=== PATIENT | female | born 1945 | race Caucasian/White ===

== ENCOUNTER → 2019-09-16 10:23 | Outpatient (CLI) | payer MEDICARE, SELFPAY ==
--- NOTE | ~2019-09-16 | XR_ITS ---
XR hip RT min 2V DATE: 09/16/2019 10:40 INDICATION: Multiple falls. Right hip pain since July. TECHNIQUE: AP and lateral views of right hip COMPARISON: None FINDINGS: There is distention scoliosis and prominent degenerative disease of the lumbar spine. The s acroiliac joints and pubic symphysis appear intact. No fracture, dislocation, avascular necrosis or b one destruction of the right hip is detected. Right hip joint space appears relatively preserved. IMPRESSION: Dextro scoliosis and multilevel degenerative disc disease of the lumbar spine No fracture or dislocation of the right hip Reviewed, dictated and finalized at location B. OON PILOT IMPRESSION: Dextro scoliosis and multilevel degenerative disc disease of the kristal mbar spine No fracture or dislocation of the right hip
== END ==
PROVIDERS: PCP Nurse Practitioner Family; Visit Provider Family Medicine
DX: M25.551 Pain in right hip (principal); M51.36 Other intervertebral disc degeneration, lumbar region
CPT/HCPCS: 73502

== ENCOUNTER 2019-12-03 10:47 | Outpatient (CLI) | payer MEDICARE, SELFPAY ==
[2019-12-03 11:42] LABS: Magnesium 2.1 mg/dL (1.6-2.3)
== END 2019-12-03 10:48 | disposition home or self-care (01) ==
PROVIDERS: PCP Nurse Practitioner Family; Visit Provider Family Medicine
DX: E03.9 Hypothyroidism, unspecified (principal); E83.41 Hypermagnesemia
CPT/HCPCS: 36415; 83735; 84443

== ENCOUNTER 2019-12-22 08:03 | Outpatient (CLI) | payer MEDICARE, SELFPAY ==
[2019-12-22 08:40] LABS: Add Urine Microscopic? NO; Appearance Urine Clear (Clear); Bilirubin Urine Negative (Negative); Blood Urine Negative (Negative); Color Urine Yellow (Yellow); Glucose Urine UA Negative (Negative); Ketones Urine Negative (Negative); Leukocyte Esterase Ur Negative LEU/UL (NEGATIVE); Nitrate Urine Negative (Negative); Protein Urine Negative (Negative); Specific Grav Ur 1.014 (1.001-1.035); Urobilinogen Urine Negative mg/dL (<2.0)
[2019-12-22 08:52] LABS: Alanine Aminotransferase 21 U/L (4-35); Albumin Level 3.7 g/dL (3.5-5.1); Alkaline Phosphatase 68 U/L (38-126); Aspartate Amino Transferase 25 U/L (14-36); Bilirubin,Total 0.4 mg/dL (0.2-1.3); Blood Urea Nitrogen 23 mg/dL (7-17); Calcium 9.9 mg/dL (8.4-10.2); Carbon Dioxide 28 mmol/L (22-30); Chloride 108 mmol/L (98-107); Cholesterol 165 mg/dL (0-200); Estimated Glomerular Filt Rate 48; Glucose 83 mg/dL (65-105); HDL Direct 45 mg/dL; Magnesium 2.3 mg/dL (1.6-2.3); Potassium 4.1 mmol/L (3.4-5.0); Sodium 140 mmol/L (137-145); Triglycerides 75 mg/dL (<150)
[2019-12-22 09:03] LABS: LDL Cholesterol Direct 98 mg/dL
[2019-12-22 10:07] LABS: Folic Acid 9.6 ng/mL (2.76->20); Vitamin B12 > 1000.0 pg/mL (239-931)
== END 2019-12-22 08:04 | disposition home or self-care (01) ==
PROVIDERS: PCP Nurse Practitioner Family; Visit Provider Family Medicine
DX: N30.00 Acute cystitis without hematuria (principal); E03.9 Hypothyroidism, unspecified; I10 Essential (primary) hypertension; E78.00 Pure hypercholesterolemia, unspecified; Z79.899 Other long term (current) drug therapy
CPT/HCPCS: 36415; 80053; 80061; 81003; 82607; 82746; 83735; 84443

== ENCOUNTER 2019-12-22 16:16 | Outpatient (CLI) | payer MEDICARE, SELFPAY ==
--- NOTE | ~2019-12-22 | US_ITS ---
EXAMINATION: US carotid duplex BI EXAM DATE: 12/22/2019 17:15 INDICATION: Headache. TECHNIQUE: Grayscale, color and pulsed Doppler images of the cervical carotid arteries were obtained . The degree of vessel stenosis is placed in one of the following categories: normal, <50% stenosis, 50-69% stenosis, >=70% stenosis but less than near-occlusion, near-occlusion, or occlusion. Note that percent stenosis relative to normal distal artery lumen diameter is indirectly measured from velocit y measurements as described by Leeroy, et al. Radiology 2003; [id number]:[id number]. Comparison is made to prior examination from 12/04/2017. FINDINGS: RIGHT SIDE: Right common carotid artery peak systolic velocity (PSV in cm/s): 102 Right bulb/internal carotid artery peak systolic velocity (PSV in cm/s): 84 Right internal carotid artery end diastolic velocity (EDV in cm/s): 33 Right ICA/CCA peak systolic ratio: 0.8 Right external carotid artery peak systolic velocity (PSV in cm/s): 85 Right vertebral artery antegrade flow: yes There is mild carotid bulb plaque. Velocity and Doppler waveforms in the common and internal carotid arteries is normal. LEFT SIDE: Left common carotid artery peak systolic velocity (PSV in cm/s): 92 Left bulb/internal carotid artery peak systolic velocity (PSV in cm/s): 77 Left internal carotid artery end diastolic velocity (EDV in cm/s): 21 Left ICA/CCA peak systolic ratio: 0.8 Left external carotid artery peak systolic velocity (PSV in cm/s): 53 Left vertebral artery antegrade flow: yes There is minimal carotid bulb plaque. Velocity and Doppler waveforms in the common and internal carotid arteries is normal. IMPRESSION: 1. Less than 50 percent stenosis in the right internal carotid artery. 2. Less than 50 percent stenosis in the left internal carotid artery. > Reviewed, dictated and finalized at location A.
== END 2019-12-22 16:17 | disposition home or self-care (01) ==
LOC: ANHIMG 16:18
PROVIDERS: PCP Nurse Practitioner Family; Visit Provider Nurse Practitioner Family
DX: R51 Headache (principal); R42 Dizziness and giddiness; I65.23 Occlusion and stenosis of bilateral carotid arteries
CPT/HCPCS: 36415; 80053; 80061; 81003; 82607; 82746; 83735; 84443; 93880; 97110; 97140

== ENCOUNTER 2020-01-07 12:30 | Outpatient (RCR) | payer MEDICARE, SELFPAY ==
--- NOTE | 2019-12-08 10:31 | PTOPEVAL ---
Thank you for referring Sheri Louise to [facility]. Please review, sign, date and return this plan of care MAIK. Pt referred to therapy due to left shoulder pain. She reports pain for 6 years following a fall. She demonstrates decreased shoulder range, decreased strength and increased pain with daily task. She requires additional skilled therapy 2x/wk x 5 wk to achieve therapy goals. I agree with and certify that the following plan of care is medically necessary. Referring Physician Date Attending Provider: Marlo Gerardo MD Referring Provider: *PT Outpatient Evaluation Start: 12/08/19 09:30 Freq: Status: Active Protocol: Document 12/08/19 09:28 CAP (Rec: 12/08/19 10:11 CAP [id number]) Therapy Assessment Status Assessment Status Assessment Status Evaluation Outpatient Past Medical History Past Medical History Source of Past Medical History Patient,Recalled from Previous Visit, Confirmed with Patient /Family Neurological History Hx Neurological Disorders No Significant History Cardiovascular History Hx Atrial Fibrillation Yes: TAKES XARELTO Hx Deep Vein Thrombosis Yes Hx Hypercholesterolemia Yes Hx Hypertension Yes Hx Pacemaker Yes: 2009, REPLACED IN 2015. SEES Hx Other Cardiac Disorders Yes: SWELLING IN LEGS, RT LEG POOR CIRCULATION Respiratory History Hx Sleep Apnea Yes: DOES NOT WEAR C-PAP Gastrointestinal History Hx Appendectomy Yes Hx Cholecystectomy Yes Genitourinary History Hx Bladder Surgery Yes: SUSPENSION Hx Renal Disease Yes Musculoskeletal History Hx Arthritis Yes Hx Fibromyalgia Yes Hx Fractures Yes: RT HAND Hx Joint Replacement Yes: left TKR Hx Orthopedic Surgery Yes: RT ROTATOR CUFF, BILAT BUNIONS, RT HAND FX REPAIR Hematological History Hx Blood Transfusions Yes Endocrine History Hx Endocrine Surgery Yes: EXC.THYROID NODULE Hx Hypothyroidism Yes: TAKES MED HEENT History Hx Sinus Problems Yes: HX FESS Hx Dental Problems Yes: UPPER AND LOWER DENTURES Hx Other HEENT Disorders Yes: GLASSES, BILAT HEARING AIDS Integumentary History Hx Shingles Yes Reproductive History Hx Hysterectomy Yes Hx Other Reproductive Disorders Yes: LT BREAST LUMPECTOMY WITH LYMPH NODES. RT BREAST BENIGN BX Psychosocial History Hx Anxiety Yes: TAKES MED Hx Depression Yes: MED Pain History
--- NOTE | 2019-12-10 11:57 | PCPTNOTE ---
Patient called & cancelled scheduled appointment this date needing to reschedule.
--- NOTE | 2019-12-17 10:33 | PCPTNOTE ---
Patient did not show up for scheduled appointment this date.
--- NOTE | 2019-12-29 10:38 | PCPTNOTE ---
Patient did not show up for scheduled appointment this date.
--- NOTE | 2020-01-07 13:22 | PTOPEVAL ---
Thank you for referring Sheri Louise to [facility]. Please review, sign, date and return this plan of care MAIK. Pt has received 7 physical therapy visits to address chronic left shoulder pain. She demonstrates improved shoulder range and strength. She is performing her HEP. She has reached maximal potential of skilled therapy at this time. DC skilled PT services. I agree with and certify that the following plan of care is medically necessary. Referring Physician Date Attending Provider: Marlo Gerardo MD Physical Therapy Discharge Summary *PT Outpatient Evaluation Start: 12/08/19 09:30 Freq: Status: Active Protocol: Document 01/07/20 12:28 CAP (Rec: 01/07/20 12:54 CAP [id number]) Therapy Assessment Status Assessment Status Assessment Status Discharge Evaluation Information Problem Diagnosis left shoulder pain Onset 6 year Cause fall Additional Evaluation Detail steriod injection left shoulder 12/02/19. She had surgery on the right shoulder for rotator cuff repair 03/2011 . Subjective Information She denies any problems with Query Text:As Reported By Patient/ reaching activties. Will Family occasional have difficulty with carrying objects. Denies problems with sleeping, but she usually sleeps on right shoulder or back if possible. States she has numbness of her left hand at night. She will move the arm to improve the symptoms. Pain Assessment Timing of Pain Assessment Timing of Pain Assessment Re-assessment Pain Scale Pain Scale Used Numeric (1 - 10) Self Report Pain Assessment Left Shoulder(s) Reported Pain Level 0 Pain Score Pain Score 0: Self Report Upper Extremity Range of Motion Scapular/ Shoulder Range of Motion Right Shoulder Flexion - Active 156 Shoulder Extension - Active 50 Shoulder Abduction - Active 136 Shoulder Medial Rotation - Active 75 Shoulder Medial Rotation - Active T9 Query Text:Reach Behind the Back Shoulder Lateral Rotation - Active 90 Shoulder Lateral Rotation - Active T1 Query Text:Reach Behind the Head Left Shoulder Flexion - Active 148 Shoulder Extension - Active 48 Shoulder Abduction - Active 142 Shoulder Medial Rotation - Active 75 Shoulder Medial Rotation - Active T7 Query Text:Reach Behind the Back Shoulder Lateral Rotation - Active 80 Shoulder Lateral Rotation - Active T1 Query Te
== END 2020-01-08 09:24 | disposition home or self-care (01) ==
LOC: ANHPT 12:30
PROVIDERS: PCP Nurse Practitioner Family; Visit Provider Orthopaedic Surgery
DX: M25.512 Pain in left shoulder (principal); M75.82 Other shoulder lesions, left shoulder
CPT/HCPCS: 97110; 97140; 97162

== ENCOUNTER 2020-02-02 12:01 | Outpatient (CLI) | payer MEDICARE, SELFPAY ==
[2020-02-02 12:26] LABS: Basophils Percent Auto 0.5 % (0.2-1.2); Eosinophils Absolute Auto 0.2 K/mm3 (0-0.3); Eosinophils Percent Auto 2.4 % (0-4.4); Hematocrit 41.4 % (37.0-47.0); Hemoglobin 13.4 g/dL (12.0-15.0); Immature Granulocyte Absolute 0.02 K/mm3 (0.00-0.031); Immature Granulocyte Percent A 0.3 % (0-0.5); Lymphocytes Absolute Auto 2.29 K/mm3 (0.9-3.2); Lymphocytes Percent Auto 29.1 % (18.3-44.2); Mean Corpuscular HGB Conc 32.4 g/dl (32-36); Mean Corpuscular Hemoglobin 29.8 pg (26-34); Mean Platelet Volume 9.5 fl (7.4-10.4); Monocytes Absolute Auto 0.7 K/mm3 (0.1-0.6); Monocytes Percent Auto 8.7 % (2.6-8.5); Neutrophils Absolute Auto 4.6 K/mm3 (1.3-6.7); Platelet Count Result 222 k/mm3 (150-375); Red Cell Distribution Width 15.2 % (11.5-14.5); White Blood Count 7.9 K/mm3 (4.5-10.0)
[2020-02-02 12:36] LABS: INR 3.5; Prothrombin Time 34.4 Seconds (11.1-14.7)
[2020-02-02 13:18] LABS: Erythrocyte Sedimentation Rate 23 mm/hr (0-20)
== END 2020-02-02 12:02 | disposition home or self-care (01) ==
PROVIDERS: PCP Nurse Practitioner Family; Visit Provider Family Medicine
DX: G44.221 Chronic tension-type headache, intractable (principal); Z86.718 Personal history of other venous thrombosis and embolism; Z79.01 Long term (current) use of anticoagulants
CPT/HCPCS: 36415; 85025; 85610; 85652

== ENCOUNTER 2020-02-23 09:05 | Outpatient (CLI) | payer MEDICARE, SELFPAY ==
[2020-02-23 09:46] LABS: Prothrombin Time 13.1 Seconds (11.1-14.7)
== END 2020-02-23 09:06 | disposition home or self-care (01) ==
PROVIDERS: PCP Nurse Practitioner Family; Visit Provider Internal Medicine Cardiovascular Disease
DX: I48.0 Paroxysmal atrial fibrillation (principal)
CPT/HCPCS: 36415; 85610

== ENCOUNTER 2020-03-02 09:03 | Outpatient (CLI) | payer MEDICARE, SELFPAY ==
[2020-03-02 09:42] LABS: Alanine Aminotransferase 17 U/L (4-35); Albumin Level 3.8 g/dL (3.5-5.1); Alkaline Phosphatase 62 U/L (38-126); Aspartate Amino Transferase 22 U/L (14-36); Bilirubin,Total 0.5 mg/dL (0.2-1.3); Blood Urea Nitrogen 30 mg/dL (7-17); Carbon Dioxide 29 mmol/L (22-30); Chloride 105 mmol/L (98-107); Cholesterol 168 mg/dL (0-200); Estimated Glomerular Filt Rate 54; Glucose 82 mg/dL (65-105); HDL Direct 43 mg/dL; Potassium 4.5 mmol/L (3.4-5.0); Sodium 139 mmol/L (137-145); Triglycerides 103 mg/dL (<150)
[2020-03-02 09:53] LABS: LDL Cholesterol Direct 101 mg/dL
== END 2020-03-02 09:04 | disposition home or self-care (01) ==
LOC: ANHLAB 09:08
PROVIDERS: PCP Nurse Practitioner Family; Visit Provider Family Medicine
DX: Z13.6 Encounter for screening for cardiovascular disorders (principal); I10 Essential (primary) hypertension
CPT/HCPCS: 36415; 80053; 80061

== ENCOUNTER 2020-04-22 14:33 | Outpatient (CLI) | payer MEDICARE, SELFPAY ==
[2020-04-22 15:02] LABS: Basophils Absolute Auto 0.1 K/mm3 (0.0-0.1); Basophils Percent Auto 0.8 % (0.2-1.2); Eosinophils Absolute Auto 0.2 K/mm3 (0-0.3); Eosinophils Percent Auto 2.1 % (0-4.4); Hematocrit 40.9 % (37.0-47.0); Hemoglobin 13.2 g/dL (12.0-15.0); Immature Granulocyte Absolute 0.07 K/mm3 (0.00-0.031); Immature Granulocyte Percent A 0.9 % (0-0.5); Lymphocytes Absolute Auto 2.45 K/mm3 (0.9-3.2); Lymphocytes Percent Auto 32.9 % (18.3-44.2); Mean Corpuscular HGB Conc 32.3 g/dl (32-36); Mean Corpuscular Hemoglobin 30.6 pg (26-34); Mean Corpuscular Volume 94.9 fl (80-100); Mean Platelet Volume 9.7 fl (7.4-10.4); Monocytes Absolute Auto 0.6 K/mm3 (0.1-0.6); Monocytes Percent Auto 7.7 % (2.6-8.5); Neutrophils Absolute Auto 4.1 K/mm3 (1.3-6.7); Neutrophils Percent Auto 55.6 % (45.5-73.1); Platelet Count Result 230 k/mm3 (150-375); Red Blood Count 4.31 M/mm3 (4.2-5.4); Red Cell Distribution Width 13.5 % (11.5-14.5); White Blood Count 7.5 K/mm3 (4.5-10.0)
[2020-04-22 15:03] LABS: Add Urine Microscopic? YES; Appearance Urine Clear (Clear); Bilirubin Urine Negative (Negative); Blood Urine Negative (Negative); Color Urine Yellow (Yellow); Glucose Urine UA Negative (Negative); Ketones Urine Negative (Negative); Leukocyte Esterase Ur Trace LEU/UL (NEGATIVE); Mucus Urine Rare /lpf; Nitrate Urine Negative (Negative); Protein Urine Negative (Negative); Specific Grav Ur 1.017 (1.001-1.035); Squamous Epithelial Cell Urine Occasional /hpf (Few); Urobilinogen Urine Negative mg/dL (<2.0)
[2020-04-22 15:12] LABS: Alanine Aminotransferase 15 U/L (4-35); Albumin Level 3.7 g/dL (3.5-5.1); Alkaline Phosphatase 58 U/L (38-126); Anion Gap 5 mmol/L (8-16); Aspartate Amino Transferase 23 U/L (14-36); Bilirubin,Total 0.7 mg/dL (0.2-1.3); Blood Urea Nitrogen 23 mg/dL (7-17); Carbon Dioxide 27 mmol/L (22-30); Chloride 105 mmol/L (98-107); Estimated Glomerular Filt Rate 48; Glucose 99 mg/dL (65-105); Potassium 4.3 mmol/L (3.4-5.0); Sodium 137 mmol/L (137-145)
[2020-04-22 15:20] LABS: NT Pro B Type Natriuretic Pept 544 PG/ML (5-100)
[2020-04-22 15:50] LABS: Erythrocyte Sedimentation Rate 20 mm/hr (0-20)
== END 2020-04-22 14:34 | disposition home or self-care (01) ==
PROVIDERS: PCP Nurse Practitioner Family; Visit Provider Family Medicine
DX: G44.52 New daily persistent headache (NDPH) (principal); R06.02 Shortness of breath
CPT/HCPCS: 36415; 80053; 81001; 83735; 83880; 85025; 85652

== ENCOUNTER 2020-04-27 11:24 | Outpatient (CLI) | payer MEDICARE, SELFPAY ==
--- NOTE | ~2020-04-27 | XR_ITS ---
EXAMINATION: XR chest 2V 04/27/2020 11:46 INDICATION: Chronic heart failure PROCEDURE: 2 view chest COMPARISON: Comparison to multiple prior studies sequentially, with oldest reviewed study dated 01/2018. FINDINGS: The lungs are clear. There are healed right rib fractures. Pacemaker leads in expected posi tion. There are cholecystectomy clips. The cardiomediastinal silhouette is within normal limits. The re are no pleural effusions. There is no pneumothorax suspected. IMPRESSION: 1: NO ACUTE CARDIOPULMONARY DISEASE. Reviewed, dictated and finalized at location B.
== END 2020-04-27 11:25 | disposition home or self-care (01) ==
PROVIDERS: PCP Nurse Practitioner Family; Visit Provider Nurse Practitioner Adult Health
DX: I50.9 Heart failure, unspecified (principal)
CPT/HCPCS: 71046

== ENCOUNTER 2020-04-28 10:26 | Outpatient (CLI) | payer MEDICARE, SELFPAY ==
[2020-04-28 11:14] LABS: NT Pro B Type Natriuretic Pept 186 PG/ML (5-100)
== END 2020-04-28 10:27 | disposition home or self-care (01) ==
PROVIDERS: PCP Nurse Practitioner Family; Visit Provider Nurse Practitioner Adult Health
DX: R60.0 Localized edema (principal); I50.32 Chronic diastolic (congestive) heart failure; Z87.448 Personal history of other diseases of urinary system
CPT/HCPCS: 36415; 83880

== ENCOUNTER 2020-06-01 09:50 | Outpatient (CLI) | payer MEDICARE, SELFPAY ==
[2020-06-01 10:24] LABS: Basophils Percent Auto 0.2 % (0.2-1.2); Eosinophils Percent Auto 0.3 % (0-4.4); Hematocrit 38.1 % (37.0-47.0); Hemoglobin 12.7 g/dL (12.0-15.0); Immature Granulocyte Absolute 0.07 K/mm3 (0.00-0.031); Immature Granulocyte Percent A 0.6 % (0-0.5); Lymphocytes Absolute Auto 1.24 K/mm3 (0.9-3.2); Lymphocytes Percent Auto 10.1 % (18.3-44.2); Mean Corpuscular HGB Conc 33.3 g/dl (32-36); Mean Corpuscular Hemoglobin 30.5 pg (26-34); Mean Corpuscular Volume 91.6 fl (80-100); Mean Platelet Volume 9.9 fl (7.4-10.4); Monocytes Absolute Auto 1.1 K/mm3 (0.1-0.6); Monocytes Percent Auto 9.3 % (2.6-8.5); Neutrophils Absolute Auto 9.8 K/mm3 (1.3-6.7); Neutrophils Percent Auto 79.5 % (45.5-73.1); Platelet Count Result 169 k/mm3 (150-375); Red Blood Count 4.16 M/mm3 (4.2-5.4); Red Cell Distribution Width 13.2 % (11.5-14.5); White Blood Count 12.3 K/mm3 (4.5-10.0)
[2020-06-01 10:36] LABS: Alanine Aminotransferase 41 U/L (4-35); Albumin Level 3.5 g/dL (3.5-5.1); Alkaline Phosphatase 83 U/L (38-126); Anion Gap 9 mmol/L (8-16); Aspartate Amino Transferase 40 U/L (14-36); Bilirubin,Total 0.5 mg/dL (0.2-1.3); Blood Urea Nitrogen 33 mg/dL (7-17); Carbon Dioxide 27 mmol/L (22-30); Chloride 98 mmol/L (98-107); Estimated Glomerular Filt Rate 31; Glucose 129 mg/dL (65-105); Potassium 3.6 mmol/L (3.4-5.0); Sodium 134 mmol/L (137-145)
== END 2020-06-01 09:51 | disposition home or self-care (01) ==
PROVIDERS: PCP Nurse Practitioner Family; Visit Provider Family Medicine
DX: N30.01 Acute cystitis with hematuria (principal); R53.83 Other fatigue
CPT/HCPCS: 36415; 80053; 85025

== ENCOUNTER 2020-06-21 16:12 | Outpatient (CLI) | payer MEDICARE, SELFPAY ==
--- NOTE | ~2020-06-21 | XR_ITS ---
XR lumbar spine 2-3V DATE: 06/21/2020 16:41 INDICATION: Acute low back pain, right hip pain. Fall 2 weeks ago. TECHNIQUE: AP and lateral and coned lateral lumbosacral views COMPARISON: 01/05/2017 CT lumbar spine 12/04/2016 lumbar spine FINDINGS: There is rotatory dextroscoliosis of the lumbar spine with severe degenerative disc disease throughout the lumbar and lumbosacral area. There is prominent degenerative spurring of the lower th oracic spine as well. No fracture or bone destruction or spondylolisthesis. The sacral iliac joints are intact. Moderate osteopenia. Multiple surgical clips overlie the right upper quadrant, likely due to cholecystectomy. There is extensive calcification of the abdominal aorta without obvious aneurysm. IMPRESSION: Rotatory dextroscoliosis and severe degenerative disc disease of lumbar spine Reviewed, dictated and finalized at location A. NE STEWARD IMPRESSION: Rotatory dextroscoliosis and severe degenerative disc disease of kristal mbar spine
--- NOTE | ~2020-06-21 | XR_ITS ---
EXAMINATION: XR hip RT min 2V DATE: 06/21/2020 16:41 INDICATION: Right hip pain. TECHNIQUE: 3 views of right hip were obtained. COMPARISON: Right hip radiographs 09/16/19 FINDINGS: Bone alignment is normal. No fracture. There is mild right hip osteoarthritis. There is sev ere lumbar spondylosis. IMPRESSION: 1. Mild right hip osteoarthritis. Reviewed, dictated and finalized at location B. AL LATHE MACHINIST
== END 2020-06-21 16:13 | disposition home or self-care (01) ==
LOC: ANHIMG 16:18
PROVIDERS: PCP Nurse Practitioner Family; Visit Provider Family Medicine
DX: M47.817 Spondylosis without myelopathy or radiculopathy, lumbosacral region (principal); I70.0 Atherosclerosis of aorta; M16.11 Unilateral primary osteoarthritis, right hip; M47.815 Spondylosis without myelopathy or radiculopathy, thoracolumbar region; M41.9 Scoliosis, unspecified
CPT/HCPCS: 72100; 73502

== ENCOUNTER 2020-07-01 10:30 | Outpatient (RCR) | payer SELFPAY ==
[2020-06-18 09:24] VITALS: PULSE 63
--- NOTE | 2020-06-24 09:16 | PCCPR ---
Absent Sheri called off due to up most of night throwing up.
--- NOTE | 2020-06-30 13:56 | PCCPR ---
Absent today, not feeling well.
--- NOTE | 2020-07-07 16:46 | PCCPR ---
Absent-for at least 2 weeks. Patient is Covid positive.
--- NOTE | 2020-07-22 08:44 | PCCPR ---
pt states feeling better, negative for pneumonia; pt still fatigued and slight cough. Pt plans to wait until after Serafin to return to CR. Did NOT discuss change in CR scheduling
--- NOTE | 2020-08-18 15:06 | PCCPR ---
Addendum entered by Juliane Mistry RN 09/13/20 08:07: LM for Sheri to give us a call to update her status or possible return to CR. Original Note: LM to follow up on plans to return to CR.
--- NOTE | 2020-09-22 12:20 | PCCPR ---
Discharging-Spoke with patient who states she has not been well since having COVID in June. She states she is sick again and they are worried it may be COVID again. She states she has spoken to her doctor and they agree she is ok to discharge and continue to do her exercises at home as tolerated. She also states she hopes to have shoulder surgery in the next month or so. Will discharge patient from the program per her request.
== END 2020-07-01 23:59 | disposition home or self-care (01) ==
LOC: ANHCPREHAB 10:30
PROVIDERS: PCP Nurse Practitioner Family; Visit Provider Nurse Practitioner Adult Health
DX: I50.32 Chronic diastolic (congestive) heart failure (principal)
CPT/HCPCS: 99199

== ENCOUNTER 2020-07-03 11:28 | Emergency (ER) | payer MEDICARE, SELFPAY ==
--- NOTE | ~2020-07-03 | XR_ITS ---
EXAMINATION: XR chest 2V EXAM DATE: 07/03/2020 12:01 INDICATION: weakness and sob/ X one week . TECHNIQUE: Frontal and lateral projections of the chest obtained and reviewed. Comparison is made to prior examination from 04/27/2020. FINDINGS: There is a dual lead pacemaker/AICD seen with leads projecting over the expected locations of the right atrial appendage and right ventricle. No confluent consolidation, pneumothorax or pleur al effusion suspected. Cardiomediastinal silhouette is normal. There are cholecystectomy clips. Old r ight mid rib fractures. Left axillary surgical clips. IMPRESSION: No acute cardiopulmonary findings. Reviewed, dictated and finalized at location A. FIBER TAKER OFF
--- NOTE | 2020-07-03 11:31 | ED.GENADULT ---
HPI - General Adult General Chief complaint: Unspecified Stated complaint: nausea/tired Time Seen by Provider: 07/03/20 11:31 Source: patient Mode of arrival: ambulatory Limitations: no limitations History of Present Illness HPI narrative: 75-year-old female patient presents to the [facility] with complaints of feeling nauseated with increased weakness and feeling overall tired. Patient states about 2 months ago she was diagnosed with CHF and had issues with her kidneys. Patient states that she was feeling a little bit better however that about a week ago she increasingly got more weak, is feeling very tired all the time and states she has been having some nausea. Patient states in the morning but sometimes she does cough up some yellow stuff. Patient states she has had intermittent shortness of breath. Patient states she does have bronchitis at times. Patient denies any fevers. Denies any diarrhea. Denies any body aches or chills. Related Data Home Medications Medication Instructions Recorded Confirmed carvedilol 6.25 mg PO BID 07/25/19 06/18/20 dicyclomine 20 mg PO BID 07/25/19 06/18/20 escitalopram oxalate 10 mg tablet 20 mg PO DAILY 08/01/19 06/18/20 montelukast 10 mg tablet 10 mg PO DAILY 08/01/19 06/18/20 vitamin B complex 1 tablet PO DAILY 08/01/19 06/18/20 alprazolam [Xanax] 0.25 mg PO DAILY PRN 08/21/19 07/03/20 cholecalciferol (vitamin D3) 400 unit PO DAILY 08/21/19 06/18/20 [Vitamin D3] flaxseed oil 1,000 mg PO DAILY 08/21/19 06/18/20 rivaroxaban [Xarelto] 15 mg PO DAILY 04/12/20 06/18/20 furosemide 20 mg PO BID 06/18/20 06/18/20 vitamin E 400 unit PO DAILY 06/18/20 06/18/20 levothyroxine [Euthyrox] 25 mcg DAILY 07/03/20 07/03/20 Allergies Allergy/AdvReac Type Severity Reaction Status Date / Time ciprofloxacin Allergy Intermediate Muscle Pain Verified 12/02/19 07:34 levofloxacin Allergy Intermediate muscle pain Verified 12/02/19 07:34 metoprolol Allergy Intermediate Palpitation Verified 12/02/19 07:34 s codeine AdvReac Unknown Nausea and Verified 12/02/19 07:34 Vomiting Review of Systems Review of Systems: Narrative: CONSTITUTIONAL: Denies fever, chills, or sweats. EYES: Denies visual changes, redness, or discharge. ENT: Denies rhinorrhea, congestion, sore throat, or otalgia. CARDIOVASCULAR: Denies chest pain, palpitations, or edema. RESPIRATORY: Positive intermittent cough, positive intermittent dyspnea. GASTROINTESTINAL: Denies abdominal pain, nausea, vomiting, or diarrhea. GENITOURINARY: Denies dysuria or hematuria. SKIN: Denies rash or itching. MUSCULOSKELETAL: Denies back pain, joint pain, or myalgia. NEUROLOGIC: Denies headache, numbness, positive weakness. PSYCHIATRIC: Denies anxiety or depression. [facility] Past Medical History Medical History (Updated 07/03/20 @ 12:41 by GLADIS Melendez) Cancer LEFT breast cancer Cardiac arrhythmia Atrial Fibrillation CHF (congestive heart failure) Coronary artery disease Cough Essential hypertension, benign (07/31/17) GERD (gastroesophageal reflux disease) (07/31/17) History of blood clots Hypercholesterolemia Hypothyroidism Insomnia (07/31/17) Kidney disease Obesity Osteoporosis Sinusitis Surgical History Surgical History History of carpal tunnel release Right 09/08/2019 History of left knee replacement History of lumpectomy lt breast Hx of appendectomy Hx of cholecystectomy Hx of partial thyroidectomy Pacemaker Status post trigger finger release Family History Family History Sibling Hypertension Family history of diabetes mellitus in first degree relative Mother Family history of heart disease in male family member before age 55 Hypertension Family history of arthritis Father Diabetes mellitus Hypertension Malignant neoplasm of prostate Brother Hypertension Family history of type 2 diabetes mellitus F
[2020-07-03 11:52] VITALS: BP 107/62; PULSE 89; RESP 20; TEMP 37.3; O2SAT 100
--- NOTE | 2020-07-03 12:03 | ECG_ITS ---
Measurements Intervals [place] Rate: 68 P: 137 DE: 172 QRS: 1 QRSD: 94 T: 56 QT: 399 QTc: 425 Interpretive Statements ELECTRONIC ATRIAL PACEMAKER LOW QRS VOLTAGE IN PRECORDIAL LEADS BORDERLINE ECG Electronically Signed On 07-03-2020 17:00:04 [employer] by Ildefonso Ramos D.O.
--- NOTE | 2020-07-03 12:36 | PC.NURSE ---
Екатерина VILLASENOR called [place] [facility] with report Spoke with Dr Caballero
== END 2020-07-03 12:43 | disposition short-term general hospital (02) ==
PROVIDERS: Emergency Provider Nurse Practitioner Family; PCP Nurse Practitioner Family
DX: R53.1 Weakness (principal); Z85.3 Personal history of malignant neoplasm of breast; I11.0 Hypertensive heart disease with heart failure; I50.9 Heart failure, unspecified; I48.91 Unspecified atrial fibrillation; K21.9 Gastro-esophageal reflux disease without esophagitis; E78.00 Pure hypercholesterolemia, unspecified; E03.9 Hypothyroidism, unspecified; M81.0 Age-related osteoporosis without current pathological fracture; Z96.652 Presence of left artificial knee joint; Z95.0 Presence of cardiac pacemaker
CPT/HCPCS: 71046; 93005; 99213; G0463

== ENCOUNTER 2020-07-03 13:17 | Emergency (ER) | payer MEDICARE, SELFPAY ==
[2020-07-03 13:21] VITALS: BP 122/67; PULSE 79; RESP 17; TEMP 36.6; O2SAT 100
--- NOTE | 2020-07-03 13:28 | ECG_ITS ---
Measurements Intervals [place] Rate: 79 P: 158 NV: 176 QRS: -7 QRSD: 90 T: 33 QT: 362 QTc: 416 Interpretive Statements ELECTRONIC ATRIAL PACEMAKER DELAYED PRECORDIAL R/S TRANSITION LOW VOLTAGE IN PRECORDIAL LEADS BASELINE ARTIFACT- I, II, AVR BORDERLINE ECG Electronically Signed On 07-03-2020 17:03:19 ASSEMBLER FITTER by Ildefonso Ramos D.O.
[2020-07-03 13:44] VITALS: BP 138/83; PULSE 81; PULSE 82; RESP 19; O2SAT 97
[2020-07-03 13:49] LABS: Basophils Percent Auto 0.4 % (0.2-1.2); Eosinophils Absolute Auto 0.1 K/mm3 (0-0.3); Hematocrit 39.4 % (37.0-47.0); Immature Granulocyte Absolute 0.04 K/mm3 (0.00-0.031); Immature Granulocyte Percent A 0.8 % (0-0.5); Lymphocytes Percent Auto 39.2 % (18.3-44.2); Mean Corpuscular Hemoglobin 29.6 pg (26-34); Mean Corpuscular Volume 89.7 fl (80-100); Mean Platelet Volume 9.2 fl (7.4-10.4); Monocytes Absolute Auto 0.6 K/mm3 (0.1-0.6); Neutrophils Absolute Auto 2.4 K/mm3 (1.3-6.7); Neutrophils Percent Auto 46.6 % (45.5-73.1); Platelet Count Result 260 k/mm3 (150-375); Red Blood Count 4.39 M/mm3 (4.2-5.4); Red Cell Distribution Width 13.6 % (11.5-14.5); White Blood Count 5.1 K/mm3 (4.5-10.0)
[2020-07-03 14:00] LABS: INR 1.7; Prothrombin Time 20.9 Seconds (11.1-14.7)
[2020-07-03 14:01] LABS: Partial Thromboplastin Time 35.2 SECONDS (22.3-36.8)
[2020-07-03 14:02] LABS: Alanine Aminotransferase 17 U/L (4-35); Albumin Level 4.1 g/dL (3.5-5.1); Alkaline Phosphatase 71 U/L (38-126); Anion Gap 8 mmol/L (8-16); Aspartate Amino Transferase 26 U/L (14-36); Bilirubin,Total 0.5 mg/dL (0.2-1.3); Blood Urea Nitrogen 22 mg/dL (7-17); Calcium 10.3 mg/dL (8.4-10.2); Carbon Dioxide 31 mmol/L (22-30); Chloride 102 mmol/L (98-107); Estimated CRCL calculation 37 ml/min; Estimated Glomerular Filt Rate 48; Glucose 97 mg/dL (65-105); Potassium 3.8 mmol/L (3.4-5.0); Sodium 141 mmol/L (137-145)
[2020-07-03 14:11] LABS: NT Pro B Type Natriuretic Pept 343 PG/ML (5-100)
[2020-07-03 14:44] VITALS: BP 132/63; PULSE 85; RESP 14; TEMP 36.6; O2SAT 98
--- NOTE | 2020-07-03 14:55 | ED.GENADULT ---
HPI - General Adult General Chief complaint: Weakness Stated complaint: sent from urgent care/weakness Time Seen by Provider: 07/03/20 13:38 History of Present Illness HPI narrative: Patient is a 75-year-old female who presents ER with generalized weakness and fatigue. She was referred here from the urgent care. 3 weeks ago patient was diagnosed with CHF as well as acute kidney injury. She has been placed on medications to stabilize his issues. Furthermore she also had issues with dark black stool several months ago and has been on Xarelto. She missed a colonoscopy follow-up on this. She is not currently having loose stools. She is not having dizziness. No chest pain or chest pressure. She does report that she has been having new productive cough of yellow sputum. No fevers or chills or sweats. She does have some mild sinus congestion with postnasal drip. Related Data Home Medications Medication Instructions Recorded Confirmed carvedilol 6.25 mg PO BID 07/25/19 07/03/20 dicyclomine 20 mg PO BID 07/25/19 07/03/20 escitalopram oxalate 10 mg tablet 20 mg PO DAILY 08/01/19 07/03/20 montelukast 10 mg tablet 10 mg PO DAILY 08/01/19 07/03/20 vitamin B complex 1 tablet PO DAILY 08/01/19 07/03/20 alprazolam [Xanax] 0.25 mg PO DAILY PRN 08/21/19 07/03/20 cholecalciferol (vitamin D3) 400 unit PO DAILY 08/21/19 07/03/20 [Vitamin D3] flaxseed oil 1,000 mg PO DAILY 08/21/19 07/03/20 rivaroxaban [Xarelto] 15 mg PO DAILY 04/12/20 07/03/20 furosemide 40 mg PO BID 06/18/20 07/03/20 vitamin E 400 unit PO DAILY 06/18/20 07/03/20 levothyroxine [Euthyrox] 25 mcg DAILY 07/03/20 07/03/20 Allergies Allergy/AdvReac Type Severity Reaction Status Date / Time ciprofloxacin Allergy Intermediate Muscle Pain Verified 07/03/20 13:45 levofloxacin Allergy Intermediate muscle pain Verified 07/03/20 13:45 metoprolol Allergy Intermediate Palpitation Verified 07/03/20 13:45 s codeine AdvReac Unknown Nausea and Verified 07/03/20 13:45 Vomiting Review of Systems Review of Systems: All systems reviewed & are unremarkable except as noted in HPI and below Constitutional: Constitutional: Denies chills, Reports fatigue and Denies fever(s) ENT: Denies nasal congestion and Denies sore throat Cardiovascular: Cardiovascular: Denies chest pain and Denies radiating jaw, neck or arm pain Respiratory: Respiratory: Reports cough, Reports dyspnea and Denies wheezing Gastrointestinal: Gastrointestinal: Denies abdominal pain, Denies nausea and Denies vomiting [facility] Past Medical History Medical History (Updated 07/03/20 @ 15:31 by Derek Caballero MD) Cancer LEFT breast cancer Cardiac arrhythmia Atrial Fibrillation CHF (congestive heart failure) Coronary artery disease Cough Essential hypertension, benign (07/31/17) GERD (gastroesophageal reflux disease) (07/31/17) History of blood clots Hypercholesterolemia Hypothyroidism Insomnia (07/31/17) Kidney disease Obesity Osteoporosis Sinusitis Surgical History Surgical History History of carpal tunnel release Right 09/08/2019 History of left knee replacement History of lumpectomy lt breast Hx of appendectomy Hx of cholecystectomy Hx of partial thyroidectomy Pacemaker Status post trigger finger release Family History Family History Sibling Hypertension Family history of diabetes mellitus in first degree relative Mother Family history of heart disease in male family member before age 55 Hypertension Family history of arthritis Father Diabetes mellitus Hypertension Malignant neoplasm of prostate Brother Hypertension Family history of type 2 diabetes mellitus Father Family history of type 2 diabetes mellitus Hypertension Sister Family history of type 2 diabetes mellitus Mother Family history of coronary artery disease Other Family history of kidney disease
[2020-07-03 15:11] LABS: Add Urine Microscopic? YES; Appearance Urine Clear (Clear); Bilirubin Urine Negative (Negative); Blood Urine Negative (Negative); Color Urine Yellow (Yellow); Glucose Urine UA Negative (Negative); Ketones Urine Negative (Negative); Leukocyte Esterase Ur Negative LEU/UL (Negative); Mucus Urine Rare /lpf; Nitrate Urine Negative (Negative); Protein Urine 1+ mg/dL (Negative); RBC Urine 0-2 /hpf (0-2); Specific Grav Ur 1.023 (1.001-1.035); Squamous Epithelial Cell Urine Occasional /hpf (Few); Urobilinogen Urine Negative mg/dL (<2.0); WBC Urine 0-3 /hpf
[2020-07-03 15:33] VITALS: BP 136/95; PULSE 78; RESP 16; O2SAT 96
[2020-07-03 23:37] LABS: SARS-CoV-2 RNA PCR Positive
== END 2020-07-03 15:45 | disposition home or self-care (01) ==
PROVIDERS: Emergency Provider Emergency Medicine; PCP Nurse Practitioner Family
DX: U07.1 COVID-19 (principal); R53.1 Weakness; Z85.3 Personal history of malignant neoplasm of breast; I50.9 Heart failure, unspecified; I25.10 Atherosclerotic heart disease of native coronary artery without angina pectoris; I11.0 Hypertensive heart disease with heart failure; E78.00 Pure hypercholesterolemia, unspecified; K21.9 Gastro-esophageal reflux disease without esophagitis; M81.0 Age-related osteoporosis without current pathological fracture; E66.9 Obesity, unspecified; Z68.29 Body mass index [BMI] 29.0-29.9, adult; N28.9 Disorder of kidney and ureter, unspecified; Z96.652 Presence of left artificial knee joint; E89.0 Postprocedural hypothyroidism; Z95.0 Presence of cardiac pacemaker; Z79.01 Long term (current) use of anticoagulants
CPT/HCPCS: 36415; 71046; 80053; 81001; 83880; 85025; 85610; 85730; 87635; 93005; 99283; C9803; U0003

== ENCOUNTER 2020-07-21 10:46 | Outpatient (CLI) | payer MEDICARE, SELFPAY ==
--- NOTE | ~2020-07-21 | XR_ITS ---
EXAMINATION: XR chest 2V DATE: 07/21/2020 11:09 INDICATION: Cough. TECHNIQUE: Frontal and lateral views of the chest were obtained. COMPARISON: Chest 2 views 07/03/2020, CT abdomen 02/16/2018 FINDINGS: There is chronic mild elevation of right hemidiaphragm. No pneumonia, pleural effusion, or pneumothorax. The heart size is normal. There is a left chest wall pacer with leads in the right atri um and right ventricle. There are multiple old healed right rib fractures. There are surgical clips i n left axilla. Surgical clips in the right upper quadrant are likely from cholecystectomy. IMPRESSION: 1. No acute cardiopulmonary disease. Reviewed, dictated and finalized at location B. E RESEARCH
== END 2020-07-21 10:47 | disposition home or self-care (01) ==
LOC: ANHIMG 10:56
PROVIDERS: PCP Nurse Practitioner Family; Visit Provider Family Medicine
DX: R05 Cough (principal); J40 Bronchitis, not specified as acute or chronic
CPT/HCPCS: 71046

== ENCOUNTER 2020-09-07 09:24 | Outpatient (CLI) | payer MEDICARE, SELFPAY ==
[2020-09-07 09:58] LABS: Hematocrit 42.7 % (37.0-47.0); Hemoglobin 13.8 g/dL (12.0-15.0); Mean Corpuscular HGB Conc 32.3 g/dl (32-36); Mean Corpuscular Hemoglobin 30.1 pg (26-34); Mean Corpuscular Volume 93.2 fl (80-100); Mean Platelet Volume 9.6 fl (7.4-10.4); Platelet Count Result 246 k/mm3 (150-375); Red Blood Count 4.58 M/mm3 (4.2-5.4); Red Cell Distribution Width 13.8 % (11.5-14.5); White Blood Count 7.4 K/mm3 (4.5-10.0)
[2020-09-07 10:11] LABS: Alanine Aminotransferase 15 U/L (4-35); Albumin Level 3.7 g/dL (3.5-5.1); Alkaline Phosphatase 65 U/L (38-126); Anion Gap 3 mmol/L (8-16); Aspartate Amino Transferase 25 U/L (14-36); Bilirubin,Total 0.6 mg/dL (0.2-1.3); Blood Urea Nitrogen 21 mg/dL (7-17); Calcium 10.1 mg/dL (8.4-10.2); Carbon Dioxide 30 mmol/L (22-30); Chloride 105 mmol/L (98-107); Estimated Glomerular Filt Rate 48; Glucose 89 mg/dL (65-105); Potassium 4.1 mmol/L (3.4-5.0); Sodium 138 mmol/L (137-145)
== END 2020-09-07 09:25 | disposition home or self-care (01) ==
PROVIDERS: PCP Nurse Practitioner Family; Visit Provider Family Medicine
DX: E03.9 Hypothyroidism, unspecified (principal); I10 Essential (primary) hypertension
CPT/HCPCS: 36415; 80053; 84443; 85027

== ENCOUNTER 2020-10-07 10:55 | Outpatient (CLI) | payer MEDICARE, SELFPAY ==
--- NOTE | ~2020-10-07 | XR_ITS ---
XR chest 2V DATE: 10/07/2020 11:08 INDICATION: Shortness of breath. Chronic diastolic heart failure. TECHNIQUE: PA and lateral views COMPARISON: 07/21/2020 PA and lateral views FINDINGS: Left dual lead pacemaker. Normal heart size. There is aortic calcification and unfolding. Stable mild right diaphragmatic elevation. No pulmonary infiltrate or consolidation, pulmonary vascular congestion or pleural effusion or pneumo thorax. Status post left mastectomy and left axillary surgical clips due to axillary node dissection. Old healed right 6th through 8th rib fractures. Status post cholecystectomy. There is levoscoliosis and degenerative change of the thoracolumbar spine. IMPRESSION: No active cardiopulmonary disease or significant change since 07/21/2020 Reviewed, dictated and finalized at location A. ICAL INSTRUMENT MECHANIC IMPRESSION: No active cardiopulmonary disease or significant change since 2019
== END 2020-10-07 10:56 | disposition home or self-care (01) ==
LOC: ANHIMG 11:00
PROVIDERS: PCP Nurse Practitioner Family; Visit Provider Internal Medicine Cardiovascular Disease
DX: I50.32 Chronic diastolic (congestive) heart failure (principal); I48.0 Paroxysmal atrial fibrillation; R06.00 Dyspnea, unspecified
CPT/HCPCS: 71046

== ENCOUNTER 2020-10-21 11:21 | Outpatient (CLI) | payer MEDICARE, SELFPAY ==
[2020-10-21 12:07] LABS: Basophils Absolute Auto 0.1 K/mm3 (0.0-0.1); Basophils Percent Auto 0.7 % (0.2-1.2); Eosinophils Absolute Auto 0.2 K/mm3 (0-0.3); Eosinophils Percent Auto 3.3 % (0-4.4); Hematocrit 44.1 % (37.0-47.0); Hemoglobin 14.1 g/dL (12.0-15.0); Immature Granulocyte Absolute 0.02 K/mm3 (0.00-0.031); Immature Granulocyte Percent A 0.3 % (0-0.5); Lymphocytes Absolute Auto 2.62 K/mm3 (0.9-3.2); Lymphocytes Percent Auto 37.2 % (18.3-44.2); Mean Corpuscular Volume 90.6 fl (80-100); Mean Platelet Volume 9.7 fl (7.4-10.4); Monocytes Absolute Auto 0.6 K/mm3 (0.1-0.6); Monocytes Percent Auto 8.9 % (2.6-8.5); Neutrophils Absolute Auto 3.5 K/mm3 (1.3-6.7); Neutrophils Percent Auto 49.6 % (45.5-73.1); Platelet Count Result 250 k/mm3 (150-375); Red Blood Count 4.87 M/mm3 (4.2-5.4); Red Cell Distribution Width 13.3 % (11.5-14.5); White Blood Count 7.1 K/mm3 (4.5-10.0)
[2020-10-21 12:19] LABS: Alanine Aminotransferase 13 U/L (4-35); Albumin Level 3.9 g/dL (3.5-5.1); Alkaline Phosphatase 64 U/L (38-126); Anion Gap 4 mmol/L (8-16); Aspartate Amino Transferase 23 U/L (14-36); Bilirubin,Total 0.6 mg/dL (0.2-1.3); Blood Urea Nitrogen 21 mg/dL (7-17); Calcium 10.4 mg/dL (8.4-10.2); Carbon Dioxide 28 mmol/L (22-30); Chloride 106 mmol/L (98-107); Estimated Glomerular Filt Rate 54; Glucose 81 mg/dL (65-105); Potassium 4.2 mmol/L (3.4-5.0); Sodium 138 mmol/L (137-145)
[2020-10-21 13:16] LABS: Free T4 Free Thyroxine 0.85 ng/mL (0.78-2.19); Vitamin D 25 Hydroxy 51.8 ng/mL
== END 2020-10-21 11:22 | disposition home or self-care (01) ==
PROVIDERS: PCP Nurse Practitioner Family; Visit Provider Family Medicine
DX: E03.9 Hypothyroidism, unspecified (principal); R53.83 Other fatigue; R11.2 Nausea with vomiting, unspecified; I10 Essential (primary) hypertension; F41.1 Generalized anxiety disorder; Z79.899 Other long term (current) drug therapy
CPT/HCPCS: 36415; 80053; 82306; 82607; 84439; 84443; 85025

== ENCOUNTER 2020-12-17 08:56 | Outpatient (CLI) | payer MEDICARE, SELFPAY ==
[2020-12-17 09:31] LABS: Basophils Absolute Auto 0.1 K/mm3 (0.0-0.1); Basophils Percent Auto 0.7 % (0.2-1.2); Eosinophils Absolute Auto 0.2 K/mm3 (0-0.3); Eosinophils Percent Auto 2.6 % (0-4.4); Hematocrit 41.7 % (37.0-47.0); Hemoglobin 13.3 g/dL (12.0-15.0); Immature Granulocyte Absolute 0.01 K/mm3 (0.00-0.031); Immature Granulocyte Percent A 0.1 % (0-0.5); Lymphocytes Absolute Auto 2.77 K/mm3 (0.9-3.2); Lymphocytes Percent Auto 37.2 % (18.3-44.2); Mean Corpuscular HGB Conc 31.9 g/dl (32-36); Mean Corpuscular Hemoglobin 28.7 pg (26-34); Mean Corpuscular Volume 90.1 fl (80-100); Mean Platelet Volume 9.9 fl (7.4-10.4); Monocytes Absolute Auto 0.8 K/mm3 (0.1-0.6); Monocytes Percent Auto 10.1 % (2.6-8.5); Neutrophils Absolute Auto 3.7 K/mm3 (1.3-6.7); Neutrophils Percent Auto 49.3 % (45.5-73.1); Platelet Count Result 252 k/mm3 (150-375); Red Blood Count 4.63 M/mm3 (4.2-5.4); Red Cell Distribution Width 14.4 % (11.5-14.5); White Blood Count 7.5 K/mm3 (4.5-10.0)
[2020-12-17 09:43] LABS: Add Urine Microscopic? YES; Appearance Urine Clear (Clear); Bilirubin Urine Negative (Negative); Blood Urine Negative (Negative); Color Urine Yellow (Yellow); Glucose Urine UA Negative (Negative); Ketones Urine Negative (Negative); Leukocyte Esterase Ur Trace LEU/UL (Negative); Mucus Urine Rare /lpf; Nitrate Urine Negative (Negative); Protein Urine Negative (Negative); RBC Urine 0-2 /hpf (0-2); Specific Grav Ur 1.019 (1.001-1.035); Squamous Epithelial Cell Urine Rare /hpf (Few); Urobilinogen Urine Negative mg/dL (<2.0)
[2020-12-17 09:48] LABS: Alanine Aminotransferase 11 U/L (4-35); Albumin Level 3.9 g/dL (3.5-5.1); Alkaline Phosphatase 62 U/L (38-126); Anion Gap 4 mmol/L (8-16); Aspartate Amino Transferase 22 U/L (14-36); Bilirubin,Total 0.7 mg/dL (0.2-1.3); Blood Urea Nitrogen 31 mg/dL (7-17); Carbon Dioxide 34 mmol/L (22-30); Chloride 102 mmol/L (98-107); Estimated Glomerular Filt Rate 37; Glucose 97 mg/dL (65-105); Magnesium 2.3 mg/dL (1.6-2.3); Potassium 3.8 mmol/L (3.4-5.0); Sodium 140 mmol/L (137-145)
[2020-12-17 10:09] LABS: Erythrocyte Sedimentation Rate 21 mm/hr (0-20)
== END 2020-12-17 08:57 | disposition home or self-care (01) ==
PROVIDERS: PCP Nurse Practitioner Family; Visit Provider Family Medicine
DX: R10.9 Unspecified abdominal pain (principal)
CPT/HCPCS: 36415; 80053; 81001; 83735; 85025; 85652

== ENCOUNTER 2020-12-27 13:58 | Outpatient (CLI) | payer MEDICARE, SELFPAY ==
[2020-12-27 15:58] LABS: Alanine Aminotransferase 14 U/L (4-35); Alkaline Phosphatase 62 U/L (38-126); Anion Gap 5 mmol/L (8-16); Aspartate Amino Transferase 26 U/L (14-36); Bilirubin,Total 0.7 mg/dL (0.2-1.3); Blood Urea Nitrogen 20 mg/dL (7-17); Calcium 10.8 mg/dL (8.4-10.2); Carbon Dioxide 29 mmol/L (22-30); Chloride 107 mmol/L (98-107); Estimated Glomerular Filt Rate 44; Glucose 93 mg/dL (65-105); Sodium 141 mmol/L (137-145)
[2020-12-27 16:05] LABS: NT Pro B Type Natriuretic Pept 711 pg/mL (5-100)
== END 2020-12-27 13:59 | disposition home or self-care (01) ==
PROVIDERS: PCP Nurse Practitioner Family; Visit Provider Family Medicine
DX: N18.30 Chronic kidney disease, stage 3 unspecified (principal); R05 Cough; R06.00 Dyspnea, unspecified
CPT/HCPCS: 36415; 80053; 83880

== ENCOUNTER 2021-01-15 10:03 | Outpatient (CLI) | payer MEDICARE, SELFPAY ==
[2021-01-15 10:49] LABS: Alanine Aminotransferase 13 U/L (4-35); Alkaline Phosphatase 64 U/L (38-126); Anion Gap 8 mmol/L (8-16); Aspartate Amino Transferase 25 U/L (14-36); Bilirubin,Total 0.5 mg/dL (0.2-1.3); Blood Urea Nitrogen 25 mg/dL (7-17); Calcium 10.7 mg/dL (8.4-10.2); Carbon Dioxide 32 mmol/L (22-30); Chloride 101 mmol/L (98-107); Estimated Glomerular Filt Rate 40; Glucose 99 mg/dL (65-105); Potassium 3.6 mmol/L (3.4-5.0); Sodium 141 mmol/L (137-145)
[2021-01-15 10:57] LABS: NT Pro B Type Natriuretic Pept 309 pg/mL (5-100)
== END 2021-01-15 10:04 | disposition home or self-care (01) ==
PROVIDERS: PCP Nurse Practitioner Family; Visit Provider Family Medicine
DX: I50.9 Heart failure, unspecified (principal); I10 Essential (primary) hypertension
CPT/HCPCS: 36415; 80053; 83880

== ENCOUNTER 2021-01-19 13:08 | Emergency (ER) | payer MEDICARE, SELFPAY ==
--- NOTE | 2021-01-19 13:14 | ED.ABDPAIN ---
HPI - Abdominal Pain General Chief Complaint: Abdominal Pain Stated Complaint: Abdominal pain Time Seen by Provider: 01/19/21 13:11 Source: patient and RN notes reviewed Mode of arrival: ambulatory History of Present Illness HPI narrative: This is a 75-year-old female who presented to urgent care today with complaints of abdominal pain. Patient has a history of congestive heart failure, A. fib, esophageal stricture, pacemaker, hypertension, chronic kidney disease, breast cancer, and hypertension. According to patient and her daughter she has been experiencing abdominal pain for couple of weeks she has also had occasional nausea and vomiting. Patient notes when she attempts to drink or eat she vomits it back up. She also noted that she recently had labs drawn and her BNP was elevated. She does complain of shortness of breath she does not have any lower extremity edema. Her abdomen is tender to touch and with palpation still the epigastric area in the left upper and lower quadrant. Patient and her daughter seems to think that she might be constipated in the give her laxative with no results. Patient will transport herself to emergency department at [facility] accepted by Dr. Caballero for further testing. According to her daughter her doctor's office wanted her to get a KUB explained to her that she will probably need a more extensive test such as a CT patient does have a pacemaker she will not be able to get her MRI. The patient denies CP, palpitation, extremity numbness, lightheadedness, dizziness, diarrhea, chills, or fever. Patient also notes that she has had blood on her toilet paper a couple times. She is scheduled to get a EGD in the next couple of months. Patient also is currently on Brittany LE elicited complaint: abdominal pain Related Data Home Medications Medication Instructions Recorded Confirmed carvedilol 6.25 mg PO BID 07/25/19 12/31/20 dicyclomine 20 mg PO BID 07/25/19 12/31/20 escitalopram oxalate 10 mg tablet 20 mg PO DAILY 08/01/19 12/31/20 montelukast 10 mg tablet 10 mg PO DAILY 08/01/19 12/31/20 vitamin B complex 1 tablet PO DAILY 08/01/19 12/31/20 alprazolam [Xanax] 0.25 mg PO DAILY PRN 08/21/19 12/31/20 flaxseed oil 1,000 mg PO DAILY 08/21/19 12/31/20 Xarelto 15 mg PO DAILY 04/12/20 12/31/20 furosemide 40 mg PO BID 06/18/20 12/31/20 vitamin E 400 unit PO DAILY 06/18/20 12/31/20 levothyroxine [Euthyrox] 25 mcg DAILY 07/03/20 12/31/20 amlodipine 2.5 mg tablet 2.5 mg PO DAILY 11/26/20 12/31/20 folic acid 800 mcg tablet 0.8 mg PO DAILY 11/26/20 12/31/20 ginkgo biloba 40 mg capsule 40 mg PO TID 11/26/20 12/31/20 iodine 150 mcg tablet mcg PO 11/26/20 12/31/20 losartan 100 mg tablet 100 mg PO DAILY 11/26/20 12/31/20 melatonin 10 mg capsule 10 mg PO QHS 11/26/20 12/31/20 ondansetron HCl 4 mg tablet 4 mg PO Q8H 11/26/20 12/31/20 ranitidine HCl 300 mg tablet mg PO PRN 11/26/20 12/31/20 Allergies Allergy/AdvReac Type Severity Reaction Status Date / Time ciprofloxacin Allergy Intermediate Muscle Pain Verified 01/19/21 13:34 levofloxacin Allergy Intermediate muscle pain Verified 01/19/21 13:34 metoprolol Allergy Intermediate Palpitation Verified 01/19/21 13:34 s codeine AdvReac Intermediate Nausea and Verified 01/19/21 13:34 Vomiting Review of Systems Review of Systems: Narrative: A 14 organ system Review of Systems was performed and pertinent positives included in the HPI, otherwise remaining ROS is negative. [facility] Past Medical History Medical History (Updated 01/19/21 @ 13:58 by CHANELLE Chris) Cancer LEFT breast cancer Cardiac arrhythmia Atrial Fibrillation CHF (congestive heart failure) Coronary artery disease Cough Essential hypertension, benign (07/31/17) GERD (gastroesophageal reflux disease) (07/31/17) History of blood clots Hypercholesterolemia Hypothyroidism Insomnia (07/31/17) Kidney disease Obesity Osteoporosis Sinusitis Surgical History Surgical History (Reviewed
[2021-01-19 13:18] VITALS: BP 135/70; PULSE 67; RESP 20; TEMP 36.2; O2SAT 99
[2021-01-19 13:34] VITALS: BP 135/70; PULSE 67; RESP 20; TEMP 36.2; O2SAT 99
== END 2021-01-19 14:00 | disposition short-term general hospital (02) ==
PROVIDERS: Emergency Provider Nurse Practitioner; PCP Nurse Practitioner Family
DX: R10.84 Generalized abdominal pain (principal); I50.9 Heart failure, unspecified; I48.91 Unspecified atrial fibrillation; Z95.0 Presence of cardiac pacemaker; I13.0 Hypertensive heart and chronic kidney disease with heart failure and stage 1 through stage 4 chronic kidney disease, or unspecified chronic kidney disease; N18.9 Chronic kidney disease, unspecified; Z85.3 Personal history of malignant neoplasm of breast; I25.10 Atherosclerotic heart disease of native coronary artery without angina pectoris; K21.9 Gastro-esophageal reflux disease without esophagitis; E78.00 Pure hypercholesterolemia, unspecified; M81.0 Age-related osteoporosis without current pathological fracture; E66.9 Obesity, unspecified; Z68.30 Body mass index [BMI] 30.0-30.9, adult; Z96.652 Presence of left artificial knee joint; E89.0 Postprocedural hypothyroidism; Z79.01 Long term (current) use of anticoagulants
CPT/HCPCS: 99212; G0463

== ENCOUNTER 2021-01-19 14:11 | Emergency (ER) | payer MEDICARE, SELFPAY ==
--- NOTE | ~2021-01-19 | CT_ITS ---
EXAMINATION: CT abdomen pelvis w con DATE: 01/19/2021 19:02 INDICATION: Lower abdominal pain. TECHNIQUE: Computed tomography (CT) of the abdomen and pelvis was performed with 100 mL Omnipaque-350 intravenous contrast. Automated exposure control and iterative reconstruction technique were employe d. The dose-length product was 447.39 mGy-cm. COMPARISON: CT abdomen dated 02/16/2018 FINDINGS: Unchanged mild discoid atelectasis/scarring at the lingula. Heart size is normal. Atherosclerotic cor onary artery calcification and aortic valve calcification. No pericardial or pleural effusion. Dual-l ead cardiac pacemaker with lead tips at the right atrial appendage and in the right ventricle along t he pulmonary outflow tract. Unchanged mild intra and extra hepatic biliary ductal dilation which is l ikely related to prior cholecystectomy with surgical clips the gallbladder fossa. Spleen, pancreas, r ight adrenal gland and right kidney are normal. Unchanged 12 mm left adrenal adenoma demonstrate len acteristic low attenuation on prior noncontrast CT . Several left renal cysts, the largest measuring 8 mm. Moderate colonic diverticulosis. There is wall thickening and inflammatory stranding the region of a diverticulum at the distal sigmoid colon consistent with acute diverticulitis. Minimal likely r eactive ascites in the pelvis. No free intraperitoneal gas. Small bowel is normal with no obstruction . The appendix is not visualized. No pericecal inflammatory change to suggest acute appendicitis. Keenan dder is normal. The uterus is not identified and has likely been surgically resected. No pathological ly enlarged abdominal or pelvic lymphadenopathy. There is calcified atherosclerosis of the aorta and many of the other arteries. Mild lumbar dextroscoliosis with severe spondylosis. There are bridging o steophytes at multiple levels in the lower thoracic spine, consistent with diffuse idiopathic skeleta l hyperostosis (DISH). IMPRESSION: 1. Radiographically uncomplicated sigmoid diverticulitis. Reviewed, dictated and finalized at location A.
[2021-01-19 14:44] VITALS: BP 113/67; PULSE 60; RESP 16; TEMP 36.5; O2SAT 99
[2021-01-19 15:01] LABS: Basophils Percent Auto 0.5 % (0.2-1.2); Eosinophils Absolute Auto 0.2 K/mm3 (0-0.3); Eosinophils Percent Auto 2.1 % (0-4.4); Hematocrit 42.8 % (37.0-47.0); Hemoglobin 13.8 g/dL (12.0-15.0); Immature Granulocyte Absolute 0.01 K/mm3 (0.00-0.031); Immature Granulocyte Percent A 0.1 % (0-0.5); Lymphocytes Percent Auto 31.6 % (18.3-44.2); Mean Corpuscular HGB Conc 32.2 g/dl (32-36); Mean Corpuscular Hemoglobin 28.8 pg (26-34); Mean Corpuscular Volume 89.2 fl (80-100); Mean Platelet Volume 9.9 fl (7.4-10.4); Monocytes Absolute Auto 0.7 K/mm3 (0.1-0.6); Monocytes Percent Auto 8.7 % (2.6-8.5); Neutrophils Absolute Auto 4.5 K/mm3 (1.3-6.7); Platelet Count Result 226 k/mm3 (150-375); Red Cell Distribution Width 13.6 % (11.5-14.5); White Blood Count 7.9 K/mm3 (4.5-10.0)
[2021-01-19 15:12] LABS: Alanine Aminotransferase 59 U/L (4-35); Alkaline Phosphatase 102 U/L (38-126); Anion Gap 8 mmol/L (8-16); Aspartate Amino Transferase 50 U/L (14-36); Bilirubin,Total 0.9 mg/dL (0.2-1.3); Blood Urea Nitrogen 17 mg/dL (7-17); Carbon Dioxide 29 mmol/L (22-30); Chloride 103 mmol/L (98-107); Estimated CRCL calculation 31 ml/min; Estimated Glomerular Filt Rate 44; Glucose 94 mg/dL (65-105); Lipase 44 U/L (23-300); Potassium 3.9 mmol/L (3.4-5.0); Sodium 140 mmol/L (137-145)
[2021-01-19 15:21] LABS: Add Urine Microscopic? NO; Appearance Urine Clear (Clear); Bilirubin Urine Negative (Negative); Blood Urine Negative (Negative); Color Urine Straw (Yellow); Glucose Urine UA Negative (Negative); Ketones Urine Negative (Negative); Leukocyte Esterase Ur Negative LEU/UL (Negative); Nitrate Urine Negative (Negative); Protein Urine Negative (Negative); Specific Grav Ur 1.008 (1.001-1.035); Urobilinogen Urine Negative mg/dL (<2.0)
[2021-01-19 17:09] VITALS: BP 127/75; PULSE 65; RESP 17; O2SAT 100
[2021-01-19 18:38] VITALS: BP 158/82; PULSE 62; RESP 18; O2SAT 100
--- NOTE | 2021-01-19 18:44 | ED.ABDPAIN ---
HPI - Abdominal Pain General Chief Complaint: Abdominal Pain Stated Complaint: possible bowel blockage Sent from Urgent Care Time Seen by Provider: 01/19/21 18:31 History of Present Illness HPI narrative: Sharp lower abdominal pain for the past few days. Assocaited with loss of appetitie and generalized weakness. She has h/o diveticulitis and she is not sure if this feels the same. No hematuria dysuria, fever. Related Data Home Medications Medication Instructions Recorded Confirmed carvedilol 6.25 mg PO BID 07/25/19 01/19/21 dicyclomine 20 mg PO BID 07/25/19 01/19/21 escitalopram oxalate 10 mg tablet 20 mg PO DAILY 08/01/19 01/19/21 montelukast 10 mg tablet 10 mg PO DAILY 08/01/19 01/19/21 vitamin B complex 1 tablet PO DAILY 08/01/19 01/19/21 alprazolam [Xanax] 0.25 mg PO DAILY PRN 08/21/19 01/19/21 flaxseed oil 1,000 mg PO DAILY 08/21/19 01/19/21 Xarelto 15 mg PO DAILY 04/12/20 01/19/21 furosemide 40 mg PO BID 06/18/20 01/19/21 vitamin E 400 unit PO DAILY 06/18/20 01/19/21 levothyroxine [Euthyrox] 25 mcg DAILY 07/03/20 01/19/21 amlodipine 2.5 mg tablet 2.5 mg PO DAILY 11/26/20 01/19/21 folic acid 800 mcg tablet 0.8 mg PO DAILY 11/26/20 01/19/21 ginkgo biloba 40 mg capsule 40 mg PO TID 11/26/20 01/19/21 iodine 150 mcg tablet 150 mcg PO DAILY 11/26/20 01/19/21 losartan 100 mg tablet 100 mg PO DAILY 11/26/20 01/19/21 melatonin 10 mg capsule 10 mg PO QHS 11/26/20 01/19/21 ondansetron HCl 4 mg tablet 4 mg PO Q8H PRN 11/26/20 01/19/21 ranitidine HCl 300 mg tablet 300 mg PO DAILY 11/26/20 01/19/21 Allergies Allergy/AdvReac Type Severity Reaction Status Date / Time ciprofloxacin Allergy Intermediate Muscle Pain Verified 01/19/21 13:34 levofloxacin Allergy Intermediate muscle pain Verified 01/19/21 13:34 metoprolol Allergy Intermediate Palpitation Verified 01/19/21 13:34 s codeine AdvReac Intermediate Nausea and Verified 01/19/21 13:34 Vomiting Review of Systems Review of Systems: All systems reviewed & are unremarkable except as noted in HPI and below ENT: Reports dizziness Cardiovascular: Cardiovascular: Denies chest pain Respiratory: Respiratory: Denies dyspnea [facility] Past Medical History Medical History Cancer LEFT breast cancer Cardiac arrhythmia Atrial Fibrillation CHF (congestive heart failure) Coronary artery disease Cough Essential hypertension, benign (07/31/17) GERD (gastroesophageal reflux disease) (07/31/17) History of blood clots Hypercholesterolemia Hypothyroidism Insomnia (07/31/17) Kidney disease Obesity Osteoporosis Sinusitis Surgical History Surgical History History of carpal tunnel release Right 09/08/2019 History of left knee replacement History of lumpectomy lt breast Hx of appendectomy Hx of cholecystectomy Hx of partial thyroidectomy Pacemaker Status post trigger finger release Family History Family History Sibling Hypertension Family history of diabetes mellitus in first degree relative Mother Family history of heart disease in male family member before age 55 Hypertension Family history of arthritis Father Diabetes mellitus Hypertension Malignant neoplasm of prostate Brother Hypertension Family history of type 2 diabetes mellitus Father Family history of type 2 diabetes mellitus Hypertension Sister Family history of type 2 diabetes mellitus Mother Family history of coronary artery disease Other Family history of kidney disease Social History Social History Smoking status: Never smoker Second hand tobacco smoke exposure: Yes (as a child) Smoking end date: 08/13/1964 Alcohol intake: never Additional living arrangements comments: Daughter Gender identity (if verbalized by the patient): Female Spiritual ca
[2021-01-19 19:15] VITALS: BP 119/100; PULSE 68; RESP 12; O2SAT 100
--- NOTE | 2021-01-19 19:15 | PC.NURSE ---
Assumed care of pt. at this time. Report from SALOMÓN Marquez
[2021-01-19] MEDS: metroNIDAZOLE 250 MG TABLET 500 MG PO (20:07)
[2021-01-19] MEDS: AMOXICILLIN/CLAVULANATE K 875-125 MG TAB 1 TABLET PO (20:07)
[2021-01-19 20:40] VITALS: BP 128/74; PULSE 74; RESP 17; O2SAT 99
[2021-01-19] MEDS: traMADol HCL (*CRX) 50 MG TABLET PO (20:40)
== END 2021-01-19 20:40 | disposition home or self-care (01) ==
PROVIDERS: Emergency Provider Emergency Medicine; PCP Nurse Practitioner Family
DX: K57.32 Diverticulitis of large intestine without perforation or abscess without bleeding (principal); I50.9 Heart failure, unspecified; I25.10 Atherosclerotic heart disease of native coronary artery without angina pectoris; I11.0 Hypertensive heart disease with heart failure; K21.9 Gastro-esophageal reflux disease without esophagitis; E78.00 Pure hypercholesterolemia, unspecified; N28.9 Disorder of kidney and ureter, unspecified; M81.0 Age-related osteoporosis without current pathological fracture; Z85.3 Personal history of malignant neoplasm of breast; E66.9 Obesity, unspecified; Z68.30 Body mass index [BMI] 30.0-30.9, adult; Z79.01 Long term (current) use of anticoagulants; E89.0 Postprocedural hypothyroidism; Z95.0 Presence of cardiac pacemaker
CPT/HCPCS: 36415; 74177; 80053; 81003; 83690; 85025; 99284; A9270; Q9967

== ENCOUNTER 2021-02-09 02:03 | Day surgery (SDC) | payer MEDICARE, SELFPAY ==
[2021-02-09 08:49] VITALS: BP 141/72; PULSE 79; RESP 18; TEMP 35.9; O2SAT 97; BMI 29.7
[2021-02-09] MEDS: LACTATED RINGERS 1,000 ML 150 ML IV CONT (08:52)
--- NOTE | 2021-02-09 09:23 | PM.HPGS ---
History of Present Illness History of Present Illness Consent: Risks, benefits, and alternatives have been discussed and questions answered. Patient agrees to proceed with procedure. Chief complaint: melena, hx of colon polyps, dysphagia Narrative: Sheri Louise is a 75 year old female was had difficulty swallowing solid food. Also she has seen blood in her stools and had a positive Hemoccult test Review of Systems Review of Systems: All systems reviewed & are unremarkable except as noted in HPI and below PMFSH Past Medical History Medical History Cancer LEFT breast cancer Cardiac arrhythmia Atrial Fibrillation CHF (congestive heart failure) Coronary artery disease Cough Essential hypertension, benign (07/31/17) GERD (gastroesophageal reflux disease) (07/31/17) History of blood clots Hypercholesterolemia Hypothyroidism Insomnia (07/31/17) Kidney disease Obesity Osteoporosis Sinusitis Surgical History Surgical History History of carpal tunnel release Right 09/08/2019 History of left knee replacement History of lumpectomy lt breast Hx of appendectomy Hx of cholecystectomy Hx of partial thyroidectomy Pacemaker Status post trigger finger release Family History Family History Sibling Hypertension Family history of diabetes mellitus in first degree relative Mother Family history of heart disease in male family member before age 55 Hypertension Family history of arthritis Father Diabetes mellitus Hypertension Malignant neoplasm of prostate Brother Hypertension Family history of type 2 diabetes mellitus Father Family history of type 2 diabetes mellitus Hypertension Sister Family history of type 2 diabetes mellitus Mother Family history of coronary artery disease Other Family history of kidney disease Social History Social History Smoking status: Never smoker Second hand tobacco smoke exposure: Yes (as a child) Smoking end date: 08/13/1964 Alcohol intake: never Additional living arrangements comments: Daughter Gender identity (if verbalized by the patient): Female Spiritual care concerns: No Meds Home Medications and Allergies Home Medications Medication Instructions Recorded Confirmed Type carvedilol 6.25 mg PO BID 07/25/19 02/09/21 History dicyclomine 20 mg PO BID 07/25/19 02/09/21 History escitalopram oxalate 10 mg tablet 20 mg PO DAILY 08/01/19 02/09/21 History montelukast 10 mg tablet 10 mg PO DAILY 08/01/19 02/09/21 History vitamin B complex 1 tablet PO DAILY 08/01/19 02/09/21 History alprazolam [Xanax] 0.25 mg PO DAILY PRN 08/21/19 02/09/21 History flaxseed oil 1,000 mg PO DAILY 08/21/19 02/09/21 History Xarelto 15 mg PO DAILY 04/12/20 02/09/21 History furosemide 40 mg PO BID 06/18/20 02/09/21 History vitamin E 400 unit PO DAILY 06/18/20 02/09/21 History levothyroxine [Euthyrox] 25 mcg DAILY 07/03/20 02/09/21 History amlodipine 2.5 mg tablet 2.5 mg PO DAILY 11/26/20 02/09/21 History folic acid 800 mcg tablet 0.8 mg PO DAILY 11/26/20 02/09/21 History ginkgo biloba 40 mg capsule 40 mg PO TID 11/26/20 02/09/21 History iodine 150 mcg tablet 150 mcg PO DAILY 11/26/20 02/09/21 History losartan 100 mg tablet 100 mg PO DAILY 11/26/20 02/09/21 History melatonin 10 mg capsule 10 mg PO QHS 11/26/20 02/09/21 History ondansetron HCl 4 mg tablet 4 mg PO Q8H PRN 11/26/20 02/09/21 History ranitidine HCl 300 mg tablet 300 mg PO DAILY 11/26/20 02/09/21 History amoxicillin-pot clavulanate 1 tablet PO Q12H #20 tablet 01/19/21 02/09/21 Rx [Augmentin] metronidazole [Flagyl] 500 mg PO Q12H #20 tablet 01/19/21 02/09/21 Rx Allergies Allergy/AdvReac Type Severity Reaction Status Date / Time ciprofloxacin Allergy Intermediate Muscle Pain Verified 02/09/21 08:46 levo
--- NOTE | 2021-02-09 09:32 | WPDANESEPPF ---
Anes - Initial Pre Proc Eval Procedure: Operation Date: 02/09/21 09:30 Proposed Procedures p Esophagogastroduodenoscopy and Colonoscopy - Zion Gerber MD Date/Time: 02/09/21 09:32 Surgeon: Zion Gerber MD Pre Op Diagnosis: melena, hx of colon polyps, dysphagia Patient Data Age: 75 Gender: F Height: 1.52 m Weight: 69 kg Last Vital Signs Temp 96.6 F L 02/09/21 08:49 Pulse 79 02/09/21 08:49 Resp 18 02/09/21 08:49 BP 141/72 H 02/09/21 08:49 Pulse Ox 97 02/09/21 08:49 Allergies Allergy/AdvReac Type Severity Reaction Status Date / Time ciprofloxacin Allergy Intermediate Muscle Pain Verified 02/09/21 08:46 levofloxacin Allergy Intermediate muscle pain Verified 02/09/21 08:46 metoprolol Allergy Intermediate Palpitation Verified 02/09/21 08:46 s codeine AdvReac Intermediate Nausea and Verified 02/09/21 08:46 Vomiting Home Medications Medication Instructions Recorded Confirmed Type carvedilol 6.25 mg PO BID 07/25/19 02/09/21 History dicyclomine 20 mg PO BID 07/25/19 02/09/21 History escitalopram oxalate 10 mg tablet 20 mg PO DAILY 08/01/19 02/09/21 History montelukast 10 mg tablet 10 mg PO DAILY 08/01/19 02/09/21 History vitamin B complex 1 tablet PO DAILY 08/01/19 02/09/21 History alprazolam [Xanax] 0.25 mg PO DAILY PRN 08/21/19 02/09/21 History flaxseed oil 1,000 mg PO DAILY 08/21/19 02/09/21 History Xarelto 15 mg PO DAILY 04/12/20 02/09/21 History furosemide 40 mg PO BID 06/18/20 02/09/21 History vitamin E 400 unit PO DAILY 06/18/20 02/09/21 History levothyroxine [Euthyrox] 25 mcg DAILY 07/03/20 02/09/21 History amlodipine 2.5 mg tablet 2.5 mg PO DAILY 11/26/20 02/09/21 History folic acid 800 mcg tablet 0.8 mg PO DAILY 11/26/20 02/09/21 History ginkgo biloba 40 mg capsule 40 mg PO TID 11/26/20 02/09/21 History iodine 150 mcg tablet 150 mcg PO DAILY 11/26/20 02/09/21 History losartan 100 mg tablet 100 mg PO DAILY 11/26/20 02/09/21 History melatonin 10 mg capsule 10 mg PO QHS 11/26/20 02/09/21 History ondansetron HCl 4 mg tablet 4 mg PO Q8H PRN 11/26/20 02/09/21 History ranitidine HCl 300 mg tablet 300 mg PO DAILY 11/26/20 02/09/21 History amoxicillin-pot clavulanate 1 tablet PO Q12H #20 tablet 01/19/21 02/09/21 Rx [Augmentin] metronidazole [Flagyl] 500 mg PO Q12H #20 tablet 01/19/21 02/09/21 Rx Patient hx anesthesia problems: none Family hx anesthesia problems: none PMFSH Past Medical History Medical History Cancer LEFT breast cancer Cardiac arrhythmia Atrial Fibrillation CHF (congestive heart failure) Coronary artery disease Cough Essential hypertension, benign (07/31/17) GERD (gastroesophageal reflux disease) (07/31/17) History of blood clots Hypercholesterolemia Hypothyroidism Insomnia (07/31/17) Kidney disease Obesity Osteoporosis Sinusitis Surgical History Surgical History History of carpal tunnel release Right 09/08/2019 History of left knee replacement History of lumpectomy lt breast Hx of appendectomy Hx of cholecystectomy Hx of partial thyroidectomy Pacemaker Status post trigger finger release Family History Family History Sibling Hypertension Family history of diabetes mellitus in first degree relative Mother Family history of heart disease in male family member before age 55 Hypertension Family history of arthritis Father Diabetes mellitus Hypertension Malignant neoplasm of prostate Brother Hypertension Family history of type 2 diabetes mellitus Father Family history of type 2 diabetes mellitus Hypertension Sister Family history of type 2 diabetes mellitus Mother Family history of coronary artery disease Other Family history of kidney disease Social History Social History Smoking status: Never smoker S
[2021-02-09] MEDS: SIMETHICONE ORAL SUSPENSION 20 MG/0.3 ML 30 ML BOTTLE 0.6 ML IRRIGATION (09:58)
[2021-02-09 10:08] VITALS: BP 106/62; PULSE 74; RESP 21; O2SAT 99
[2021-02-09 10:18] VITALS: BP 123/63; PULSE 63; RESP 16; O2SAT 99
[2021-02-09 10:28] VITALS: BP 134/70; PULSE 60; RESP 20; O2SAT 100
== END 2021-02-09 10:45 | disposition home or self-care (01) ==
PROVIDERS: PCP Nurse Practitioner Family; Visit Provider Internal Medicine Gastroenterology
PROC: 0DJ08ZZ Inspection of Upper Intestinal Tract, Via Natural or Artificial Opening Endoscopic (ICD-10-PCS; CPT 43235; principal; 2021-02-09 09:30)
DX: R19.5 Other fecal abnormalities (principal); K57.30 Diverticulosis of large intestine without perforation or abscess without bleeding; K64.8 Other hemorrhoids; K22.2 Esophageal obstruction; K44.9 Diaphragmatic hernia without obstruction or gangrene; I11.0 Hypertensive heart disease with heart failure; I50.9 Heart failure, unspecified; I48.91 Unspecified atrial fibrillation; I25.10 Atherosclerotic heart disease of native coronary artery without angina pectoris; K21.9 Gastro-esophageal reflux disease without esophagitis; E78.00 Pure hypercholesterolemia, unspecified; E03.9 Hypothyroidism, unspecified; M81.0 Age-related osteoporosis without current pathological fracture; Z95.0 Presence of cardiac pacemaker; Z79.01 Long term (current) use of anticoagulants; Z85.3 Personal history of malignant neoplasm of breast
CPT/HCPCS: 45378; 43239; C1726; J2704; J7120

== ENCOUNTER 2021-02-24 08:18 | Outpatient (CLI) | payer MEDICARE, SELFPAY ==
--- NOTE | 2021-02-28 10:30 | WPDPFTINT ---
PFT Procedure Performed PFT Procedure Performed Spirometry with Pre/Post Bronchodilator Plethysmography (Lung Vol) Diffusing Cap (DLCO) Flow Vol Loop PFT Interpretation DOS: 02/24/2021 REQUESTING: Mirian Monroy NP REASON FOR TESTING: Dyspnea on exertion PULMONARY FUNCTION TESTS Results are reliable and reproducible. the respiratory therapist noted that the patient had difficulty with the Inspira naina limb of the flow volume loop which improved after bronchodilator Spirometry: FEV1 is 100%, 1.84 L. FVC is 93%. The FEV1/FVC ratio is normal. There is no change with bronchodilator administration. Lung volumes: Total lung capacity is 90%, normal. Residual volume is 90%. RV/TLC is mildly elevated 47% consistent with mild air trapping. Airway resistance is 71% not elevated Diffusion: DLCO 77% normal. Flow volume loop: Normal. IMPRESSION: Normal spirometry, mild air trapping which suggests an obstructive process, and normal diffusion. The inspiratory loop was difficult for the patient to perform until bronchodilator was administered. The lack of bronchodilator administration during spirometry should not preclude use since it does appear to be clinically indicated. Juanita Garvin MD
== END 2021-02-24 08:19 | disposition home or self-care (01) ==
PROVIDERS: PCP Nurse Practitioner Family; Visit Provider Nurse Practitioner Adult Health
DX: R06.00 Dyspnea, unspecified (principal)
CPT/HCPCS: 94060; 94726; 94729

== ENCOUNTER 2021-05-10 13:35 | Outpatient (CLI) | payer MEDICARE, SELFPAY ==
--- NOTE | ~2021-05-10 | XR_ITS ---
EXAMINATION: XR chest 2V DATE: 05/10/2021 14:20 INDICATION: Shortness of breath, TECHNIQUE: PA and lateral views of the chest are obtained. COMPARISON: 10/07/2020 FINDINGS: The lungs are free of acute opacities. There is no pleural effusion or pneumothorax. The ca rdiomediastinal silhouette is normal. There is severe thoracic spondylosis. A dual-lead cardiac pacem willi of the left chest wall ends with leads in expected locations. There are changes of left axillary lymph node dissection. Cholecystectomy clips are noted in the right upper quadrant. There are healed right-sided rib fractures. IMPRESSION: 1. No acute cardiopulmonary abnormality. Reviewed, dictated and finalized at location A.
[2021-05-10 14:11] LABS: Basophils Percent Auto 0.3 % (0.2-1.2); Eosinophils Absolute Auto 0.1 K/mm3 (0-0.3); Eosinophils Percent Auto 2.2 % (0-4.4); Hematocrit 41.1 % (37.0-47.0); Hemoglobin 13.2 g/dL (12.0-15.0); Immature Granulocyte Absolute 0.01 K/mm3 (0.00-0.031); Immature Granulocyte Percent A 0.2 % (0-0.5); Lymphocytes Absolute Auto 2.66 K/mm3 (0.9-3.2); Lymphocytes Percent Auto 41.2 % (18.3-44.2); Mean Corpuscular HGB Conc 32.1 g/dl (32-36); Mean Corpuscular Hemoglobin 29.3 pg (26-34); Mean Corpuscular Volume 91.1 fl (80-100); Mean Platelet Volume 9.5 fl (7.4-10.4); Monocytes Absolute Auto 0.5 K/mm3 (0.1-0.6); Monocytes Percent Auto 8.1 % (2.6-8.5); Neutrophils Absolute Auto 3.1 K/mm3 (1.3-6.7); Platelet Count Result 230 k/mm3 (150-375); Red Blood Count 4.51 M/mm3 (4.2-5.4); Red Cell Distribution Width 14.6 % (11.5-14.5); White Blood Count 6.5 K/mm3 (4.5-10.0)
[2021-05-10 14:22] LABS: Alanine Aminotransferase 116 U/L (4-35); Albumin Level 4.1 g/dL (3.5-5.1); Alkaline Phosphatase 103 U/L (38-126); Anion Gap 7 mmol/L (8-16); Aspartate Amino Transferase 127 U/L (14-36); Bilirubin,Total 0.7 mg/dL (0.2-1.3); Blood Urea Nitrogen 28 mg/dL (7-17); Calcium 10.2 mg/dL (8.4-10.2); Carbon Dioxide 27 mmol/L (22-30); Chloride 103 mmol/L (98-107); Estimated Glomerular Filt Rate 44; Glucose 82 mg/dL (65-110); Sodium 137 mmol/L (137-145)
[2021-05-10 14:31] LABS: NT Pro B Type Natriuretic Pept 732 pg/mL (5-100)
[2021-05-10 17:12] LABS: Free T4 Free Thyroxine Reflex 1.25 ng/dL (0.78-2.19)
[2021-05-10 18:06] LABS: Total Triiodothyronine (T3) 0.98 NG/ML (0.97-1.69)
== END 2021-05-10 13:36 | disposition home or self-care (01) ==
PROVIDERS: PCP Nurse Practitioner Family; Visit Provider Nurse Practitioner Adult Health
DX: R06.02 Shortness of breath (principal); Z51.81 Encounter for therapeutic drug level monitoring; Z79.899 Other long term (current) drug therapy
CPT/HCPCS: 36415; 71046; 80053; 83880; 84439; 84443; 84480; 85025

== ENCOUNTER 2021-05-26 09:25 | Outpatient (CLI) | payer MEDICARE, SELFPAY ==
[2021-05-26 09:57] LABS: Alanine Aminotransferase 16 U/L (4-35); Albumin Level 4.2 g/dL (3.5-5.1); Alkaline Phosphatase 75 U/L (38-126); Aspartate Amino Transferase 24 U/L (14-36); Bilirubin,Total 0.4 mg/dL (0.2-1.3)
== END 2021-05-26 09:26 | disposition home or self-care (01) ==
PROVIDERS: PCP Nurse Practitioner Family; Visit Provider Family Medicine
DX: I13.10 Hypertensive heart and chronic kidney disease without heart failure, with stage 1 through stage 4 chronic kidney disease, or unspecified chronic kidney disease (principal); I50.32 Chronic diastolic (congestive) heart failure; R06.02 Shortness of breath
CPT/HCPCS: 36415; 80076

== ENCOUNTER 2021-07-13 10:00 | Outpatient (RCR) | payer MEDICARE, SELFPAY ==
--- NOTE | 2021-06-29 09:42 | PTOPEVAL ---
Thank you for referring Sheri Louise to [facility].? The patient is scheduled to be seen for therapy? 2 x/week for 5 weeks. Please review, sign, date and return this plan of care MAIK. I agree with and certify that the following plan of care is medically necessary. Referring Physician Date Attending Provider: Marlo Gerardo MD Diagnosis right knee pain Cause fall Additional Evaluation Detail mild medial joint space narrowing and moderate patellofemoral narrowing. Mild early tricompartmental spurring appreciated. 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 She received an injection 06/21/21 with relief of knee pain. Subjective Information She reports right knee pain Query Text:As Reported By Patient/ after a fall early May 2021. Family She has had multiple falls recently. She was trying to carry groceries into the house when she fall. She has had 5 falls in the past 6 months. The falls usually occur when she fist stands up and starts walking. Pain Assessment Right Knee(s) Reported Pain Level 2 Pain Description Aching Lowest Pain Intensity 2 Greatest Pain Intensity 10 Pain Aggravating Factors Bending,Exercise/Activity, Lifting,Stair Climbing,Walking Lower Extremity Range of Motion Knee Range of Motion Right Knee Flexion Range of Motion - Active 138 Knee Extension Range of Motion - Active 0 Lower Extremity Muscle Strength Testing Hip Strength Left Hip Flexion Strength 4 Good Hip Extension Strength 3- Fair - Hip Abduction Strength 3- Fair - Right Hip Flexion Strength 4- Good - Hip Extension Strength 3- Fair - Hip Abduction Strength 3- Fair - Knee Strength Left Knee Flexion Strength 3+ Fair + Knee Extension Strength 4- Good - Right Knee Flexion Strength 3+ Fair + Knee Extension Strength 4- Good - Ankle Strength Right Ankle Dorsiflexion Strength 5 Normal Muscle Length Testing Muscle Length Testing Two-Joint Hip Flexor Shortened Muscles Short (R) Iliopsoas,Short (L) Iliopsoas,Short (R) Rectus Femoris,Short (L) Rectus Femoris Piriformis w/Hip Flexion >90 Degrees (R) Mild T
--- NOTE | 2021-07-13 10:24 | PCPTNOTE ---
Patient did not show up for scheduled appointment this date; called and left voicemail stating patient has no scheduled appointments further then this date and to call back if there has been changes.
--- NOTE | 2021-08-02 10:14 | PCPTNOTE ---
Admitting Provider: Attending Provider: Marlo Gerardo MD Patient:Sheri Louise Date of :1945 Physical Therapy Discharge Summary Patient has not returned for any further treatments since initial eval on 06/29/21, therefore she will be discharged at this time. Patient?s initial visit was on 06/29/2021 08:30 and she had a total of 1 visits. The goals have been not met due to no follow up therapy received. Thank you for referring this patient to [facility]. Please review, sign, date and return this discharge summary MAIK. I have been updated about the patient's current status and I agree with discharge from the above service at this time. Referring Physician Date
== END 2021-08-03 09:33 | disposition home or self-care (01) ==
LOC: ANHPT 10:00
PROVIDERS: PCP Nurse Practitioner Family; Visit Provider Orthopaedic Surgery
DX: M25.561 Pain in right knee (principal)
CPT/HCPCS: 97110; 97162

== ENCOUNTER 2021-12-14 08:51 | Outpatient (CLI) | payer MEDICARE, SELFPAY ==
--- NOTE | 2021-12-14 11:00 | NEURO_ITS ---
Impression: # Complains of numbness of hands. # Mild left Carpal Tunnel Syndrome. # Needle/EMG exam revealed decreased motor unit potentials generally though no active neurogenic changes noted bilaterally. # Findings suggestive of higher involvement such as cervical spondylosis or else myelopthy. MRI of C-spine suggested. Nerve Conduction Studies Anti Sensory Summary Table Stim Site NR Peak (ms) P-T Amp (?V) Site1 Site2 Delta-P (ms) Dist (cm) Gregg (m/s) Left Median Anti Sensory (2-3nd Digit) Wrist 3.9 43.8 Wrist 2-3nd Digit 3.9 14.0 36 Wrist 4.1 73.7 Wrist 2-3nd Digit 3.9 14.0 36 Right Median Anti Sensory (2-3nd Digit) Wrist 2.7 25.8 Wrist 2-3nd Digit 2.7 14.0 52 Wrist 3.4 25.3 Wrist 2-3nd Digit 2.7 14.0 52 Left Radial Anti Sensory (Base 1st Digit) Wrist 2.2 9.2 Wrist Base 1st Digit 2.2 0.0 Right Radial Anti Sensory (Base 1st Digit) Wrist 2.3 24.4 Wrist Base 1st Digit 2.3 0.0 Left Ulnar Anti Sensory (5th Digit) Wrist 2.6 63.9 Wrist 5th Digit 2.6 14.0 54 Right Ulnar Anti Sensory (5th Digit) Wrist 2.9 244.8 Wrist 5th Digit 2.9 14.0 48 Motor Summary Table Stim Site NR Onset (ms) O-P Amp (mV) Site1 Site2 Delta-0 (ms) Dist (cm) Gregg (m/s) Left Median Motor (Abd Poll Brev) Wrist 4.3 1.4 Elbow Wrist 3.7 24.0 65 Elbow 8.0 3.7 Right Median Motor (Abd Poll Brev) Wrist 3.2 5.1 Elbow Wrist 4.2 25.0 60 Elbow 7.4 4.2 Left Ulnar Motor (Abd Dig Minimi) Wrist 2.7 3.4 A Elbow Wrist 4.4 26.0 59 A Elbow 7.1 3.1 Right Ulnar Motor (Abd Dig Minimi) Wrist 3.0 5.8 A Elbow Wrist 4.0 26.0 65 A Elbow 7.0 5.4 F Wave Studies NR F-Lat (ms) L-R F-Lat (ms) Left Median (Mrkrs) (Abd Poll Brev) 26.95 1.56 Right Median (Mrkrs) (Abd Poll Brev) 25.39 1.56 Left Ulnar (Mrkrs) (Abd Dig Min) 25.86 0.00 Right Ulnar (Mrkrs) (Abd Dig Min) 25.86 0.00 EMG Side Muscle Nerve Root Ins Act Fibs Amp Dur Recrt Comment Right 1stDorInt Ulnar C8-T1 Nml Nml Nml Nml Nml Right Ext Indicis Radial (Post Int) C7-8 Nml Nml Nml Nml Nml Right Ext Digitorum Radial (Post Int) C7-8 Nml Nml Nml Nml Nml Right BrachioRad Radial C5-6 Nml Nml Nml Nml Nml Right PronatorTeres Median C6-7 Nml Nml Nml Nml Nml Right Abd Poll Brev Median C8-T1 Nml Nml Nml Nml Nml Left 1stDorInt Ulnar C8-T1 Nml Nml Nml Nml Nml Left Ext Indicis Radial (Post Int) C7-8 Nml Nml Nml Nml Nml Left Ext Digitorum Radial (Post Int) C7-8 Nml Nml Nml Nml Nml Left BrachioRad Radial C5-6 Nml Nml Nml Nml Nml Left PronatorTeres Median C6-7 Nml Nml Nml Nml Nml Left Abd Poll Brev Median C8-T1 Nml Nml Nml Nml Nml MTDD
== END 2021-12-14 08:52 | disposition home or self-care (01) ==
LOC: ANHNEURO 09:01 → ANHCARD 09:05
PROVIDERS: PCP Nurse Practitioner Family; Visit Provider Orthopaedic Surgery
DX: M79.642 Pain in left hand (principal); M79.641 Pain in right hand; G56.02 Carpal tunnel syndrome, left upper limb; R94.131 Abnormal electromyogram [EMG]
CPT/HCPCS: 95886; 95911

== ENCOUNTER 2022-03-01 08:16 | Outpatient (CLI) | payer MEDICARE, SELFPAY ==
--- NOTE | ~2022-03-01 | XR_ITS ---
EXAMINATION: XR UGIAC w barium swallow DATE: 03/01/2022 09:04 INDICATION: Diaphragmatic hernia without obstruction or gangrene. TECHNIQUE: The patient drank thick barium, gas-producing crystals, and thin barium. Fluoroscopy of th e esophagus, stomach, and proximal small bowel was performed. Fluoroscopy exposure time was 0.7 minut es. The total number of images was 275. Total dose-area product was 1.6 Gy-cm^2. COMPARISON: CT abdomen and pelvis 01/19/2021 FINDINGS: There is no mass or stricture of the esophagus. There is decreased primary and secondary es ophageal peristalsis. Abnormal tertiary waves were noted. There is no hiatal hernia. The stomach and proximal small bowel show normal folding patterns. IMPRESSION: 1. Moderate esophageal dysmotility. Reviewed, dictated and finalized at location A.
== END 2022-03-01 08:17 | disposition home or self-care (01) ==
PROVIDERS: PCP Family Medicine; Visit Provider Internal Medicine Gastroenterology
DX: K44.9 Diaphragmatic hernia without obstruction or gangrene (principal); K22.4 Dyskinesia of esophagus
CPT/HCPCS: 74246

== ENCOUNTER 2022-03-11 18:52 | Emergency (ER) | payer MEDICARE, SELFPAY ==
--- NOTE | ~2022-03-11 | CT_ITS ---
EXAMINATION: CT brain wo con DATE: 03/11/2022 20:45 INDICATION: Head injury, pain . TECHNIQUE: Computed tomography (CT) of the head was performed without intravenous contrast. The mA wa s adjusted according to patient size. Iterative reconstruction technique was employed. The dose-lengt h product was 605.33 mGy-cm. COMPARISON: 12/04/2017 FINDINGS: No acute intracranial hemorrhage or extra-axial fluid collection. No hydrocephalus, mass, or herniation. No acute ischemic infarct. Unremarkable dural venous sinus attenuation. No acute osseous abnormality. The aerated spaces are clear. Mild atrophy and chronic white matter change. Atherosclerotic intracranial calcification. Bilateral l ens replacements. IMPRESSION: No acute intracranial process. Reviewed, dictated and finalized at location K.
--- NOTE | ~2022-03-11 | CT_ITS ---
EXAMINATION: CT cervical spine wo con DATE: 03/11/2022 20:45 INDICATION: pain, injury TECHNIQUE: Computed tomography (CT) of the cervical spine was performed without intravenous contrast. Automated exposure control and iterative reconstruction technique were employed. The dose-length pro duct was 282.80 mGy-cm. COMPARISON: None FINDINGS: Vertebral Body Alignment: Intact. Craniocervical and atlantoaxial alignment: Moderate degenerative change with pannus. Alignment intact . Osseous structures/fracture: No evidence of a lytic or blastic process in the visualized spine. No e vidence of acute fracture. Cervical soft tissues: The paraspinal soft tissues planes are maintained. Degenerative changes: Multilevel severe degenerative disc disease. Multilevel severe left neural fora elder narrowing. No severe central canal narrowing. IMPRESSION: No acute fracture or traumatic malalignment in the cervical spine. Reviewed, dictated and finalized at location K.
--- NOTE | ~2022-03-11 | CT_ITS ---
EXAMINATION: CT thoracic spine wo con DATE: 03/11/2022 20:45 INDICATION: pain, injury . TECHNIQUE: Computed tomography (CT) of the thoracic spine was performed without intravenous contrast. Automated exposure control and iterative reconstruction technique were employed. The dose-length pro duct was 1104.15 mGy-cm. COMPARISON: None FINDINGS: Scoliosis. Exaggerated thoracic kyphosis. Multilevel moderate degenerative disc disease wit h prominent osteophytes. No acute fracture. No severe central canal or neural foraminal narrowing. Bi lateral adrenal adenomas. Incompletely visualized pacer leads. Coronary artery calcification. Senesce nt change in the lungs, with possible mild interstitial edema. IMPRESSION: 1. No acute fracture or traumatic malalignment in the thoracic spine. 2. Possible mild interstitial edema. Reviewed, dictated and finalized at location K.
[2022-03-11 19:00] VITALS: BP 120/85; PULSE 75; RESP 20; TEMP 37; O2SAT 99
--- NOTE | 2022-03-11 20:29 | ED.FALL ---
HPI - Fall General Chief Complaint: Fall Stated Complaint: FALL IN BATHTUB HURTS ALL OVER Time Seen by Provider: 03/11/22 20:06 History of Present Illness HPI Narrative: Patient is a 76-year-old female complaining of head, neck and mid back pain, 7 out of 10, dull, nonradiating after she slipped and fell on her bathtub while cleaning up. Patient denies any loss of consciousness. Patient denies any symptoms prior to the fall. Patient denies any chest, abdomen, pelvis, hip or any extremity pain/injury. Patient is on Xarelto for atrial fib. Related Data Home Medications Medication Instructions Recorded Confirmed carvedilol 6.25 mg tablet 6.25 mg PO BID 07/25/19 02/21/22 escitalopram oxalate 10 mg tablet 20 mg PO DAILY 08/01/19 02/21/22 (Lexapro) montelukast 10 mg tablet 10 mg PO DAILY 08/01/19 02/21/22 (Singulair) vitamin B complex (B 1 tablet PO DAILY 08/01/19 02/21/22 Complex-Vitamin B12 tablet) alprazolam 0.25 mg tablet (Xanax) 0.25 mg PO DAILY PRN Anxiety 08/21/19 02/21/22 flaxseed oil 1,000 mg capsule 1,000 mg PO DAILY 08/21/19 02/21/22 rivaroxaban 15 mg tablet (Xarelto) 15 mg PO DAILY 04/12/20 02/21/22 furosemide 20 mg tablet 40 mg PO BID 06/18/20 02/21/22 vitamin E 268 mg (400 unit) capsule 400 unit PO DAILY 06/18/20 02/21/22 levothyroxine 25 mcg tablet 25 mcg DAILY 07/03/20 02/21/22 (Euthyrox) amlodipine 2.5 mg tablet 2.5 mg PO DAILY 11/26/20 02/21/22 losartan 100 mg tablet (Cozaar) 100 mg PO DAILY 11/26/20 02/21/22 ondansetron HCl 4 mg tablet 4 mg PO Q8H PRN Abdominal Pain 11/26/20 02/21/22 Allergies Allergy/AdvReac Type Severity Reaction Status Date / Time ciprofloxacin Allergy Intermediate Muscle Pain Verified 03/11/22 20:26 levofloxacin Allergy Intermediate muscle pain Verified 03/11/22 20:26 metoprolol Allergy Intermediate Palpitation Verified 03/11/22 20:26 s codeine AdvReac Intermediate Nausea and Verified 03/11/22 20:26 Vomiting Review of Systems Review of Systems: All systems reviewed & are unremarkable except as noted in HPI and below Constitutional: Constitutional: Denies body ache(s), Denies chills, Denies excessive sweating, Denies fatigue, Denies fever(s), Denies headache(s), Denies lethargy, Denies malaise, Denies weakness and Denies weight loss Eyes: Eyes: Denies blurry vision, Denies change in vision and Denies loss of vision ENT: Denies dizziness, Denies ear discharge, Denies headache(s), Denies lip swelling, Denies epistaxis, Denies nasal congestion, Denies neck pain, Denies throat swelling and Denies tongue swelling Cardiovascular: Cardiovascular: Denies chest pain, Denies chest pain at rest, Denies chest pain with activity, Denies diaphoresis, Denies rapid heart rate, Denies edema, Denies irregular heart rhythm, Denies lightheadedness, Denies palpitations, Denies dyspnea and Denies dyspnea on exertion Respiratory: Respiratory: Denies chest congestion, Denies cough, Denies hemoptysis, Denies dyspnea and Denies dyspnea on exertion Gastrointestinal: Gastrointestinal: Denies abdominal pain, Denies melena, Denies hematochezia, Denies diarrhea, Denies nausea, Denies vomiting and Denies hematemesis Musculoskeletal: Musculoskeletal: Denies abnormal gait, Denies deformity, Denies joint swelling, Denies limited range of motion, Denies neck pain and Denies numbness Neurologic: Denies Abnormal speech present, Denies abnormal gait, Denies confusion, Denies dizziness, Denies headache(s), Denies focal weakness, Denies loss of vision, Denies numbness, Denies Other visual disturbances, Denies Sensory deficit (Neuro) and Denies weakness Psychiatric: Psychiatric: Denies confusion, Denies depression, Denies auditory hallucinations, Denies homicidal ideation and Denies suicidal ideation Endocrine: Endocrine: Denies cold intolerance, Denies excessive sweating, Denies fatigue, Denies heat intolerance and Denies palpitations Hematologic/Lymphatic: Hematologic/Lymphatic: Denies easy bleeding and Denies e
[2022-03-11] MEDS: HYDROcodone/acetaminophen (*CRX) 5-325 MG TABLET 1 TAB PO (21:53)
[2022-03-11 22:12] VITALS: BP 132/64; PULSE 64; RESP 20; O2SAT 96
== END 2022-03-11 22:16 | disposition home or self-care (01) ==
PROVIDERS: Emergency Provider Emergency Medicine; PCP Family Medicine
DX: S09.90XA Unspecified injury of head, initial encounter (principal); S16.1XXA Strain of muscle, fascia and tendon at neck level, initial encounter; S29.012A Strain of muscle and tendon of back wall of thorax, initial encounter; I48.91 Unspecified atrial fibrillation; I50.9 Heart failure, unspecified; I11.0 Hypertensive heart disease with heart failure; E78.00 Pure hypercholesterolemia, unspecified; K21.9 Gastro-esophageal reflux disease without esophagitis; N28.9 Disorder of kidney and ureter, unspecified; M81.0 Age-related osteoporosis without current pathological fracture; E66.9 Obesity, unspecified; Z68.30 Body mass index [BMI] 30.0-30.9, adult; Z96.652 Presence of left artificial knee joint; Z95.0 Presence of cardiac pacemaker; E89.0 Postprocedural hypothyroidism; Z85.3 Personal history of malignant neoplasm of breast; Z79.01 Long term (current) use of anticoagulants; Z87.891 Personal history of nicotine dependence; W01.198A Fall on same level from slipping, tripping and stumbling with subsequent striking against other object, initial encounter
CPT/HCPCS: 70450; 72125; 72128; 99284; A9270

== ENCOUNTER 2022-06-25 14:54 | Emergency (ER) | payer MEDICARE, SELFPAY ==
[2022-06-25 15:09] VITALS: BP 150/69; PULSE 85; RESP 18; TEMP 36.4; O2SAT 100
--- NOTE | 2022-06-25 15:42 | ED.URI ---
HPI - URI/Sore Throat General Chief Complaint: Upper Respiratory Infection Stated Complaint: sorethroat,bilateral ear pain Source: patient Mode of arrival: ambulatory Limitations: no limitations History of Present Illness HPI Narrative: 77-year-old female presents to [facility] with complaints of right ear pain, sore throat, cough and sinus pressure for the past 3-4 days. Patient reports that she recently returned home from traveling to [place]. Patient reports she has a history of a ruptured right tympanic membrane which occurred around age 4. Patient denies fevers, nausea, vomiting diarrhea, shortness of breath or wheezing. Patient reports that her granddaughter who she was visiting was recently ill with a sinus infection. MD elicited complaint: sore throat, nasal congestion, sinus pain and other (right ear pain ) Able to tolerate fluids by mouth: Yes Associated symptoms: denies other symptoms Treatments prior to arrival: none Related Data Home Medications Medication Instructions Recorded Confirmed carvedilol 6.25 mg tablet 6.25 mg PO BID 07/25/19 04/12/22 escitalopram oxalate 10 mg tablet 20 mg PO DAILY 08/01/19 04/12/22 (Lexapro) montelukast 10 mg tablet 10 mg PO DAILY 08/01/19 04/12/22 (Singulair) vitamin B complex (B 1 tablet PO DAILY 08/01/19 04/12/22 Complex-Vitamin B12 tablet) alprazolam 0.25 mg tablet (Xanax) 0.25 mg PO DAILY PRN Anxiety 08/21/19 04/12/22 flaxseed oil 1,000 mg capsule 1,000 mg PO DAILY 08/21/19 04/12/22 rivaroxaban 15 mg tablet (Xarelto) 15 mg PO DAILY 04/12/20 04/12/22 furosemide 20 mg tablet 40 mg PO BID 06/18/20 04/12/22 vitamin E 268 mg (400 unit) capsule 400 unit PO DAILY 06/18/20 04/12/22 levothyroxine 25 mcg tablet 25 mcg DAILY 07/03/20 04/12/22 (Euthyrox) amlodipine 2.5 mg tablet 2.5 mg PO DAILY 11/26/20 04/12/22 losartan 100 mg tablet (Cozaar) 100 mg PO DAILY 11/26/20 04/12/22 ondansetron HCl 4 mg tablet 4 mg PO Q8H PRN Abdominal Pain 11/26/20 04/12/22 Allergies Allergy/AdvReac Type Severity Reaction Status Date / Time ciprofloxacin Allergy Intermediate Muscle Pain Verified 06/25/22 15:25 levofloxacin Allergy Intermediate muscle pain Verified 06/25/22 15:25 metoprolol Allergy Intermediate Palpitation Verified 06/25/22 15:25 s codeine AdvReac Intermediate Nausea and Verified 06/25/22 15:25 Vomiting Review of Systems Constitutional: Constitutional: Denies chills, Denies fatigue, Denies fever(s) and Denies weakness ENT: Denies vertigo, Denies dizziness and Reports nasal congestion Comments: Sinus pressure, ear pain Respiratory: Respiratory: Reports cough, Denies dyspnea and Denies wheezing Gastrointestinal: Gastrointestinal: Denies abdominal pain, Denies diarrhea, Denies nausea and Denies vomiting Integumentary/Breasts: Skin/Breast: Denies rash Neurologic: Denies vertigo, Denies dizziness and Denies headache(s) [facility] Past Medical History Medical History (Updated 06/25/22 @ 15:48 by Sonja Iverson APRN) Cancer LEFT breast cancer Cardiac arrhythmia Atrial Fibrillation CHF (congestive heart failure) Coronary artery disease Cough Essential hypertension, benign (07/31/17) GERD (gastroesophageal reflux disease) (07/31/17) History of blood clots Hypercholesterolemia Hypothyroidism Insomnia (07/31/17) Kidney disease Obesity Osteoporosis Sinusitis Surgical History Surgical History History of carpal tunnel release Right 09/08/2019 History of left knee replacement History of lumpectomy lt breast Hx of appendectomy Hx of cholecystectomy Hx of partial thyroidectomy Pacemaker Status post trigger finger release Family History Family History Sibling Hypertension Family history of diabetes mellitus in first degree relative Mother Family history of heart disease in male family member before age 55 Hypertension Family history of arthri
== END 2022-06-25 15:52 | disposition home or self-care (01) ==
PROVIDERS: Emergency Provider Nurse Practitioner Family; PCP Family Medicine
DX: H66.91 Otitis media, unspecified, right ear (principal); J01.10 Acute frontal sinusitis, unspecified; Z87.891 Personal history of nicotine dependence; K21.9 Gastro-esophageal reflux disease without esophagitis; E78.00 Pure hypercholesterolemia, unspecified; E03.9 Hypothyroidism, unspecified; M81.0 Age-related osteoporosis without current pathological fracture; I11.0 Hypertensive heart disease with heart failure; I50.9 Heart failure, unspecified; I25.10 Atherosclerotic heart disease of native coronary artery without angina pectoris; I48.91 Unspecified atrial fibrillation; Z85.3 Personal history of malignant neoplasm of breast; Z86.2 Personal history of diseases of the blood and blood-forming organs and certain disorders involving the immune mechanism; Z96.652 Presence of left artificial knee joint; Z95.0 Presence of cardiac pacemaker
CPT/HCPCS: 87804; 99213; G0463

== ENCOUNTER 2022-09-01 12:43 | Outpatient (CLI) | payer MEDICARE, SELFPAY | END 2022-09-01 12:44 | disposition home or self-care (01) | LOC: ANHLAB 12:45 | PROVIDERS: PCP Family Medicine; Visit Provider Nurse Practitioner | DX: R19.7 Diarrhea, unspecified (principal); R15.9 Full incontinence of feces | CPT/HCPCS: 87045; 87269; 87427; 87493 ==